=== PATIENT | female | born 1950 | race Caucasian/White ===

== ENCOUNTER 2016-08-05 15:35 | Inpatient (IN) | payer OTHER ==
[~2016-08-05] VITALS: Ht 154.9 cm; Wt 63.5 kg
--- NOTE | 2016-08-05 16:09 | NUR ---
TRIAGE: PT TO ER WITH SON C/C PAIN TO L KNEE S/P FALL TODAY & R SHOULDER PAIN CHRONIC X MONTHS S/P FALL. PT STATES SHE FELL DOWN ABOUT 3 STAIRS CARRYING HER DOG. HAS NOT TRIED ANY OTC MEDICATIONS, "I DON'T TAKE THEM. THEY USUALLY GIVE ME PERSCRIPTION PAIN MEDICATIONS."
--- NOTE | 2016-08-05 16:09 | NUR ---
Informed waiting has been performed.
[2016-08-05] MEDS ORDERED: JANUVIA100 M1 PO (17:12)
[2016-08-05] MEDS ORDERED: LOSARTAN POTAS100 M1 PO (17:12)
[2016-08-05] MEDS ORDERED: LEVOTHYROXINE50 MCG PO (17:13)
[2016-08-05] MEDS ORDERED: CARVEDILOL6.25 M1 PO (17:13)
[2016-08-05] MEDS ORDERED: GLYSET25 MG PO (17:14)
[2016-08-05] MEDS ORDERED: RISPERIDONE1 M1 PO (17:14)
[2016-08-05] MEDS ORDERED: PAROXETINE HCL30 M1 PO (17:14)
[2016-08-05] MEDS ORDERED: ASPIRIN EC81 M1 PO (17:15)
[2016-08-05] MEDS ORDERED: METFORMIN HCL500 M3 PO (17:15)
[2016-08-05] MEDS ORDERED: MIRTAZAPINE45 M1 PO (17:15)
[2016-08-05] MEDS ORDERED: LANTUS SOL100 UNIT/1 SC (17:17)
[2016-08-05] MEDS ORDERED: NOVOLOG100 UNIT/2 SC (17:17)
[2016-08-05] MEDS ORDERED: LIPITOR80 M1 PO (17:18)
[2016-08-05] MEDS ORDERED: PROAIR HFA8.5 GM INH (17:18)
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
--- NOTE | 2016-08-05 18:39 | RADIOLOGY REPORT ---
EXAMINATION: XR LEFT HIP AND LEFT KNEE CLINICAL INFORMATION: Left hip and left knee pain following fall. COMPARISON: None. TECHNIQUE: AP, lateral and bilateral oblique views of the left knee, 5 views in total. AP and crosstable lateral views of the left hip, 3 views in total. FINDINGS: Left knee: Multiple views of the left knee demonstrate a comminuted fracture involving the distal left femur, with contiguous extension into the lateral tibiofemoral compartment. There is approximately 5 mm of lateral displacement of the distal femoral fracture fragment relative to the proximal femoral fracture fragment. Additionally, there is approximately 4 mm of superior displacement of the distal femoral fracture fragment relative to the medial femoral condyle. There is significant soft tissue swelling surrounding the left knee joint and there is a moderate suprapatellar left knee joint effusion, likely automobile rental representative of lipohemarthrosis. There are mild degenerative changes involving the patellofemoral compartment. Left hip: Demineralization of the visualized bones. No visible grossly displaced left hip or left hemipelvic fractures. IMPRESSION: 1. Acute comminuted fracture involving the distal left femur. This comminuted fracture is oriented obliquely. A butterfly fragment is identified. There is contiguous extension of the fracture into the lateral tibiofemoral compartment. There is approximately 5 mm of lateral displacement of the distal femoral fracture fragment relative to the femur. There is also approximately 4 mm of superior displacement of the distal femoral fracture fragment relative to the adjacent medial femoral condyle. 2. Moderate lipohemarthrosis. 3. No visible fracture or dislocation of the left hip.
--- NOTE | 2016-08-05 18:47 | NUR ---
GRADE RECORDER DEGEORGE AT BEDSIDE TO DISCUSS DISTAL FEMUR FRACTURE.
--- NOTE | 2016-08-05 19:06 | NUR ---
PATIENT FROM [place] [facility] STRETCHER TO ROOM 9 AT THIS TIME.
--- NOTE | 2016-08-05 19:28 | NUR ---
BLOOD DRAWN AND SENT TO LAB BY THIS MST. BLUE, SST, LAV, PINK, AND COBB TOPS DRAWN. EKG DONE
[2016-08-05 19:37] LABS: ABSOLUTE BASOPHIL COUNT 0 /CUMM (0.0-0.2); ABSOLUTE EOSINOPHIL COUNT 0.1 /CUMM (0.0-0.7); ABSOLUTE GRANULOCYTE CT 10.3 /CUMM (1.4-6.5); ABSOLUTE LYMPH COUNT 1.7 /CUMM (1.2-3.4); ABSOLUTE MONOCYTE COUNT 0.7 /CUMM (0.10-0.60); BASOPHIL % 0.4 % (0.0-2.0); EOSINOPHIL % 1.2 % (0-5); HEMATOCRIT 38.7 % (37-47); MEAN CORPUSCULAR HGB 30.2 PG (27.0-31.0); MEAN CORPUSCULAR HGB CONC 32.9 G/DL (33.0-37.0); MEAN CORPUSCULAR VOLUME 91.7 FL (81.0-99.0); MEAN PLATELET VOLUME 10.3 FL (7.4-10.4); PLATELET COUNT 100 /CUMM (130-400); RBC DISTRIBUTION WIDTH 17.2 % (11.5-14.5); RED BLOOD CELL CT 4.22 /CUMM (4.20-5.40); WHITE BLOOD CELL COUNT 12.9 /CUMM (4.8-10.8)
--- NOTE | 2016-08-05 19:38 | NUR ---
PT RESTING COMFORTBALY REPORTS PAIN ONLY WITH MOVEMENT, 2/10. AWAKE/ALERT WITH EASY WOB.
[2016-08-05 19:41] LABS: PT 14.6 SEC (9.4-12.5); PTT 35 SEC (25-37)
--- NOTE | 2016-08-05 21:20 | RADIOLOGY REPORT ---
EXAMINATION: XR CHEST CLINICAL INFORMATION: Shortness of breath. COMPARISON: None. TECHNIQUE: PA and lateral views of the chest were obtained. FINDINGS: The lungs are well-expanded, without focal airspace consolidation. No pleural effusions or pneumothoraces are identified. Cardiomediastinal contours are within normal limits. Soft tissues are unremarkable. No acute osseous abnormality is identified. There are mild to moderate multilevel degenerative changes of the imaged thoracic spine. IMPRESSION: No acute pulmonary process.
--- NOTE | 2016-08-05 21:25 | NUR ---
PT IS GOING TO -
--- NOTE | 2016-08-05 21:37 | Cons- Orthopedic ---
CHRISTIANNE ROJAS 08/05/16 2130: General Information and HPI Consulting Request Date of Consult: 08/05/16 Requested By: Reason for Consult: left distal femur fracture Source of Information: patient Exam Limitations: no limitations History of Present Illness: This 66 year old white female with past medical history significant for copd, htn, dm, hld, depression, hypothyroidism, and history of syncopal falls, presents with a left distal femur fracture after a seemingly mechanical fall at home. Although she admits to having syncopal falls in the past, she doesn't believe today's fall involved provoking symptoms. She describes the event as a mechanical event involving tripping down three stairs at home. Her son heard the fall, helped her into a chair, and later assisted her transportation to the ED. She currently reports left thigh and knee discomfort, but is pretty comfortable with resting it currently. She denies any recent illnesses. No dizziness. No shortness of breath. No chest pains. Allergies/Medications Allergies: Coded Allergies: No Known Allergies (08/05/16) Current Medications: Current Medications Sig/Jesus Manuel Start time Last Medication Dose Route Stop Time Status Admin Insulin Human Regular 0 Q6 08/05 2359 AC SC Morphine Sulfate 0 .STK-MED ONE 08/05 2023 DC .ROUTE Morphine Sulfate 4 MG ONCE ONE 08/05 2000 DC 08/05 IV 08/05 Oxycodone/ 0 .STK-MED ONE 08/05 1846 DC Acetaminophen PO Oxycodone/ 1 TAB ONCE ONE 08/05 1800 DC 08/05 Acetaminophen PO 08/05 1801 1846 Past History Medical History Neurological: NONE EENT: NONE Cardiovascular: hypertension, hyperlipidemia Respiratory: COPD Gastrointestinal: NONE Hepatic: NONE Renal: NONE Musculoskeletal: NONE Psychiatric: depression Endocrine: diabetes, hypothyroidism Blood Disorders: NONE Cancer(s): NONE JOB COST ESTIMATOR/Reproductive: NONE Surgical History Pertinent Surgical History: 1 Psychosocial History Where Do You Live? Home Who Do You Live With? child (lives with her son) ETOH Use: occasional use Illicit Drug Use: marijuana Review of Systems Review of Systems: admits: left knee and thigh discomfort denies: dizziness, shortness of breath, chest pains, abdominal pain, dysuria, weakness Exam & Diagnostic Data Vital Signs and I&O Vital Signs Date Time Temp Pulse Resp B/P Pulse O2 O2 Flow FiO2 Ox Delivery Rate 08/06 2127 98.7 88 18 139/74 92 Room Air 08/06 2031 88 16 186/90 95 Room Air 08/05 1605 98.2 74 20 176/75 92 Room Air Physical Exam: General - alert & oriented x 3. comfortable. no acute distress. Skin - warm, dry, and smooth. no rashes noted. Lungs - clear bilaterally Cardiac - s1s2. reg. Abdomen - soft. nontender Extremities - warm bilaterally. calves soft and nontender b/l. did not attempt range of motion of left hip and knee due to known fracture. pain with palpation to the left knee and lateral aspect of her thigh with obvious swelling. nvi distally. Last 24 Hours of Labs: Laboratory Tests 08/05 1917 Chemistry Sodium (137 - 145 mmol/L) 140 Potassium (3.5 - 5.1 mmol/L) 4.4 Chloride (98 - 107 mmol/L) 105 Carbon Dioxide (22 - 30 mmol/L) 21 L Anion Gap (5 - 16) 14 BUN (7 - 17 mg/dL) 14 Creatinine (0.5 - 1.0 mg/dL) 1.1 H Estimated GFR (>60 ml/min) 50 L BUN/Creatinine Ratio (7 - 25 %) 12.7 Glucose (65 - 99 mg/dL) 264 H Calcium (8.4 - 10.2 mg/dL) 10.7 H Total Bilirubin (0.2 - 1.3 mg/dL) 1.4 H AST (14 - 36 U/L) 50 H ALT (9 - 52 U/L) 50 Alkaline Phosphatase (<127 U/L) 160 H Troponin I (< 0.11 ng/ml) < 0.01 Total Protein (6.3 - 8.2 g/dL) 7.4 Albumin (3.5 - 5.0 g/dL) 4.0 Globulin (1.9 - 4.2 gm/dL) 3.4 Albumin/Globulin Ratio (1.1 - 2.2 %) 1.2 Coagulation PT (9.4 - 12.5 SEC) 14.6 H INR (0.90 - 1.19) 1.40 H APTT (25 - 37 SEC) 35 Hematology CBC w Diff NO MAN DIFF REQ WBC (4.8 - 10.8 /CUMM) 12.9 H RBC (4.20 - 5.40 /CUMM) 4.22 Hgb (12.0 - 16.0 G/DL) 12.7 Hct (37 - 47 %) 38.7 MCV (81.0 - 99.0 FL) 91.7 MCH (27.0 - 31.0 PG) 30.2 RDW (11.5 - 14.5 %) 17.2 H Plt Count (130 - 400 /CUMM) 100 L MPV (7.4 - 10.4 FL) 10.3 Gran % (42.2 - 75.2 %) 80.0 H Lymphocytes % (20.5 - 51.1 %) 12.9 L Monocytes % (1.7 - 9.3 %) 5.5 Eosinophils % (0 - 5 %) 1.2 Basophils % (0.0 - 2.0 %) 0.4 Absolute Granulocytes (1.4 - 6.5 /CUMM) 10.3 H Absolute Lymphocytes (1.2 - 3.4 /CUMM) 1.7 Absolute Monocytes (0.10 - 0.60 /CUMM) 0.7 H Absolute Eosinophils (0.0 - 0.7 /CUMM) 0.1 Absolute Basophils (0.0 - 0.2 /CUMM) 0 PUBS MCHC (33.0 - 37.0 G/DL) 32.9 L Imaging Results: EXAM TYPE: RAD - XRY-HIP 2-3 VIEWS, LEFT; XRY-KNEE, LEFT EXAMINATION: XR LEFT HIP AND LEFT KNEE CLINICAL INFORMATION: Left hip and left knee pain following fall. COMPARISON: None. TECHNIQUE: AP, lateral and bilateral oblique views of the left knee, 5 views in total. AP and crosstable lateral views of the left hip, 3 views in total. FINDINGS: Left knee: Multiple views of the left knee demonstrate a comminuted fracture involving the distal left femur, with contiguous extension into the lateral tibiofemoral compartment. There is approximately 5 mm of lateral displacement of the distal femoral fracture fragment relative to the proximal femoral fracture fragment. Additionally, there is approximately 4 mm of superior displacement of the distal femoral fracture fragment relative to the medial femoral condyle. 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 There are mild degenerative changes involving the patellofemoral compartment. Left hip: Demineralization of the visualized bones. No visible grossly displaced left hip or left hemipelvic fractures. IMPRESSION: 1. Acute comminuted fracture involving the distal left femur. This comminuted fracture is oriented obliquely. A butterfly fragment is identified. There is contiguous extension of the fracture into the lateral tibiofemoral compartment. There is approximately 5 mm of lateral displacement of the distal femoral fracture fragment relative to the femur. There is also approximately 4 mm of superior displacement of the distal femoral fracture fragment relative to the adjacent medial femoral condyle. 2. Moderate lipohemarthrosis. 3. No visible fracture or dislocation of the left hip. DICTATED BY: BRIANNA PENA MD DATE/TIME DICTATED:08/05/161827 BUILDING SERVICES TECHNICIAN:RICHARD DATE/TIME TRANSCRIBED:08/05/161827 Other Results: EXAM TYPE: RAD - XRY-CHEST XRAY, PA AND LATERAL EXAMINATION: XR CHEST CLINICAL INFORMATION: Shortness of breath. COMPARISON: None. TECHNIQUE: PA and lateral views of the chest were obtained. FINDINGS: The lungs are well-expanded, without focal airspace consolidation. No pleural effusions or pneumothoraces are identified. Cardiomediastinal contours are within normal limits. Soft tissues are unremarkable. No acute osseous abnormality is identified. There are mild to moderate multilevel degenerative changes of the imaged thoracic spine. IMPRESSION: No acute pulmonary process. DICTATED BY: BRIANNA PENA MD DATE/TIME DICTATED:08/05/162115 BUILDING SERVICES TECHNICIAN:RICHARD DATE/TIME TRANSCRIBED:08/05/162115 Assessment/Plan Assessment/Plan This 66 year old white female with hx copd, htn, dm, hld, depression, hypothyroidism, and history of syncopal falls, presents with a left distal femur fracture after a seemingly mechanical fall at home being admitted to medical service for multiple co-morbidities will need surgical repair once patient is cleared by medical team pain control as needed ortega currently in place likely str placement post-op the patient understands & agrees with plan d/w Problem List: 1. Fracture, femur, distal Consult Acknowledgment - Thank you for your consult request. JODEE TERESA MD 08/06/16 1018: General Information and HPI Allergies/Medications Home Med List: Albuterol Sulfate (Proair Hfa) 90 MCG HFA.AER.AD 2 PUF INH PRN COPD (Reported ) Aspirin (Ecotrin*) 81 MG TABLET.DR 1 TAB PO DAILY HEART/BLOOD (Reported) Atorvastatin Calcium (Lipitor) 80 MG TABLET 1 TAB PO DAILY CHOLESTEROL ( Reported) Carvedilol 6.25 MG TABLET 1 TAB PO BID HEART/BP (Reported) Insulin Aspart (Novolog) (Unknown Strength) VIAL (Unknown Dose) SC TIDAC DM ( Reported) Insulin Glargine,Hum.rec.anlog (Lantus Solostar) 100 UNIT/ML (3 ML) INSULN.PEN 50 UNIT SC BID DM (Reported) Levothyroxine Sodium 50 MCG TABLET 1 TAB PO DAILY THYROID (Reported) Losartan Potassium 100 MG TABLET 1 TAB PO DAILY BP (Reported) Metformin HCl 500 MG TABLET 1 TAB PO BID DM (Reported) Miglitol (Glyset) 25 MG TABLET 1 TAB PO TID DM (Reported) Mirtazapine (Remeron) 15 MG TAB.RAPDIS 1 TAB PO QPM Mental Health (Reported) Paroxetine HCl 30 MG TABLET 1 TAB PO BID MENTAL HEALTH (Reported) Risperidone (Risperdal) 0.5 MG TABLET 1 TAB PO BID Mental Health (Reported) Risperidone 1 MG TABLET 1 TAB PO QPM MENTAL HEALTH (Reported) Sitagliptin Phosphate (Januvia) 100 MG TABLET 1 TAB PO DAILY DM (Reported) Assessment/Plan Consult Acknowledgment - Thank you for your consult request. Attending MD Review Statement Attending Statement Attending MD Statement: examined this patient, discuss w/resident/PA/LOSS PREVENTION ASSOCIATE, agreed w/resident/PA/LOSS PREVENTION ASSOCIATE, discussed w/nursing, reviewed images Attending Assessment/Plan: 66yo F presents with left knee and thigh pain s/p fall down 3 stairs while carrying her dog. No other injuries. She reports difficulty with medical management of blood sugars and blood pressure, saying she's "all over the place ". Recent problems with generalized weakness resulting in falls, but says she has not seen a doctor for this problem. She does not know her PCP's name. Only surgical history is partial hysterectomy. Currently living with her son. EXAM: No tenderness to palpation of bilateral upper extremities and right lower extremity. Pain and tenderness over left knee and left thigh. No tenderness over over hip, calf, ankle, or foot. Intact EHL/FHL bilaterally, pain with attempted left ankle DF/PF Sensation intact to light touch over bilateral feet, with exception of chronic decreased sensation in sole of feet R>L. A/P: 66yo F with left intra-articular distal femur fracture s/p mechanical fall. Pain controlled at this time. XR and CT scan obtained; recommend surgery for open reduction internal fixation of fracture. 1. NWB LLE, knee immobilizer for comfort 2. Pain control 3. NPO for possible OR today 4. Please hold chemoprophylaxis, SCDs while in bed 5. Appreciate medical team's care of patient's medical comorbities. Possible OR today vs tomorrow pending OR availability and further evaluation.
--- NOTE | 2016-08-05 21:54 | NUR ---
REPORT TO LALY ON 2NA
--- NOTE | 2016-08-05 21:54 | CT SCAN REPORT ---
EXAMINATION: CT LOWER EXTREMITY WITHOUT CONTRAST, LEFT CLINICAL INFORMATION: Left femur fracture. COMPARISON: Left knee radiographs from the same date TECHNIQUE: Multidetector volumetric imaging was obtained to the left femur without contrast. Multiplanar reformatted images in coronal and sagittal orientations were submitted. 3-dimensional volume rendered images were created by the interpreting physician on a separate workstation. DLP: 1605 mGy-cm FINDINGS: A sagittal intercondylar fracture of the distal femur extends from the medial cortex of the distal femoral diaphysis (9 cm proximal to the lateral femoral condyle articular surface) through the distal femoral articular surface. At the level of the articular surfaces, this fracture line is roughly 8 mm lateral to the midline, extending to the lateral trochlear facet and lateral aspect of the intercondylar notch. The fracture line does not extend into the weightbearing surfaces of the lateral femoral condyle nor the posterior nonweightbearing surface. Anteriorly, the fracture line is distracted by 9 mm at the superior aspect of the lateral trochlear facet with lateral displacement of the lateral condylar fragment. The posterior margin of the fracture line is not distracted, indicating that the lateral condylar fragment has a mild degree of external rotation. The lateral condylar fragment is displaced cephalad by 6 mm. At the posterior cortex of the diaphysis, there is a second, incomplete fracture line which propagates medially. This does not reach the far medial cortex (best seen on the 3-dimensional volume rendered images). This constitutes an SOFCOT type IV fracture. There is minimal degenerative arthritis of the hip joint. No proximal femoral fractures. Chondrocalcinosis is present in the pubic symphysis. Marked chondral calcinosis is present throughout the knee joint. There is subchondral cystic change at the weightbearing surface of the medial femoral condyle, likely due to overlying articular cartilage loss. There is mild joint space narrowing and medial compartment. Imaged portion of the tibial plateau and fibular head are unremarkable. There is a moderate-sized lipohemarthrosis within the knee joint. No intra-articular gas to indicate an open fracture. No significant loose bodies are identified. Marked soft tissue edema signal is present within the popliteal fossa. Additional blood products underlie the distal aspect of the vastus lateralis. IMPRESSION: 1. Sagittal intercondylar fracture of the distal femur propagating through the lateral trochlear facet and intercondylar notch with lateral and cephalad displacement of the lateral condylar fragment. 2. Moderate-sized lipohemarthrosis
--- NOTE | 2016-08-05 22:03 | NUR ---
[facility] CALLED FOR TRANSPORT.
--- NOTE | 2016-08-05 22:12 | History & Physical ---
FERNANDO OLVERA 08/05/16 2211: General Information and HPI MD Statement: I have seen and personally examined NANCY CHASE and documented this H&P. The patient is a 66 year old F who presented with a patient stated chief complaint of left thigh pain and left knee pain status post mechanical fall. Source of Information: patient Exam Limitations: no limitations History of Present Illness: This is a 66-year-old female with past medical history significant for hypertension, hyperlipidemia, COPD, diabetes mellitus, hypothyroidism, depression, history of multiple falls presented to ER with chief complaint of left thigh and left knee pain status post mechanical fall this afternoon. According to the patient, she was walking down the stairs when she tripped and fell. she ended on her left side complaining of left hip, thigh and left knee pain. She denies hitting her head and remembers the entire event. She denies loss of consciousness. No dizziness or lightheadedness before the event. No headache. Denies passing out. Patient complains of pain at left hip, left thigh, left knee. 11/06, controlled with morphine and Percocet in the ER. Aching and sharp and radiating down her leg. Associated with knee swelling. Denies any weakness, sensory changes. She denied any numbness or tingling sensation. She denies any other trauma. Also reports chronic right shoulder pain from previous fall. She has history of multiple falls in the past. Usually goes to walk-in clinic and get x-rays done. However she was never operated. She denies any chest pain, palpitations, difficulty breathing, abdominal pain, nausea, vomiting, diarrhea or constipation. Denied any leg swelling. Denied any headache, numbness or weakness, sensory changes, tingling sensation. However patient reported difficulty walking because of severe pain. Denies any fever, chills, sick contacts or travel history. She reports smoking history- 7 cigarettes per day. Denies alcohol abuse. Occasional marijuana user. Allergies/Medications Allergies: Coded Allergies: No Known Allergies (08/05/16) Compliance With Home Meds: GOOD Past History Travel History Traveled to [place] past 21 day No Medical History Neurological: NONE EENT: NONE Cardiovascular: hypertension, hyperlipidemia Respiratory: COPD Gastrointestinal: NONE Hepatic: NONE Renal: NONE Musculoskeletal: NONE Psychiatric: depression Endocrine: diabetes, hypothyroidism Blood Disorders: NONE Cancer(s): NONE BENDER MACHINE OPERATOR/Reproductive: NONE Surgical History Surgical History: none Past Family/Social History Psychosocial History Where do you live? Home Who Do You Live With? child (lives with her son) Smoking Status: Current Everyday Smoker ETOH Use: occasional use Illicit Drug Use: marijuana Review of Systems Review of Systems Constitutional: Denies: chills, diaphoresis, fever, malaise, weakness, unexplained weight loss. Cardiovascular: Denies: chest pain, edema, orthopena, palpitations, peripheral edema, syncope. Respiratory: Reports: wheezing. Denies: cough, hemoptysis, orthopnea, short of breath, sputum production. GI: Denies: abdominal pain, bloating, constipation, diarrhea, nausea, bloody stool, vomiting. Genitourinary: Denies: dysuria, frequency, pain, urgency. Musculoskeletal: Reports: joint pain. Denies: back pain. Skin: Reports: erythema. Neurological/Psychological: Denies: anxiety, ataxia, confusion, depressed, dementia, emotional problems, headache, numbness, tingling, tremors. Exam & Diagnostic Data Last 24 Hrs of Vital Signs/I&O Vital Signs Date Time Temp Pulse Resp B/P Pulse O2 O2 Flow FiO2 Ox Delivery Rate 08/06 0018 88 92/58 08/05 2300 98.0 90 18 132/70 92 Room Air 08/05 2235 Room Air 08/05 2128 98.7 88 18 139/74 92 Room Air 08/05 2032 88 16 186/90 95 Room Air 08/05 1605 98.2 74 20 176/75 92 Room Air Intake & Output 08/06 0800 08/06 0000 08/05 1600 Intake Total Output Total 180 Balance -180 Output, Urine 180 Patient 63.503 kg Weight Physical Exam General Appearance Alert, Oriented X3, Cooperative, No Acute Distress Skin No Rashes, No Breakdown HEENT Atraumatic, PERRLA, EOMI, Mucous Membr. moist/pink Neck Supple, No JVD, No thryomegaly Lymphatic Axillary nl, Cervical nl Cardiovascular Regular Rate, Normal S1, Normal S2, No Murmurs Lungs Normal Air Movement, wheezes Abdomen Normal Bowel Sounds, Soft, No Tenderness Neurological Normal Speech, Strength at 5/5 X4 Ext, Normal Tone, Sensation Intact, Cranial Nerves 3-12 NL Extremities No Clubbing, No Cyanosis, left knee swollen, tender, limited rom Vascular Normal Pulses, Pulses Symmetrical Last 24 Hrs of Labs/Garrett: Laboratory Tests 08/05/161917: Anion Gap 14, Estimated GFR 50 L, BUN/Creatinine Ratio 12.7, Glucose 264 H, Hemoglobin A1c Pending, Calcium 10.7 H, Total Bilirubin 1.4 H, AST 50 H, ALT 50, Alkaline Phosphatase 160 H, Troponin I < 0.01, Total Protein 7.4, Albumin 4.0, Globulin 3.4, Albumin/Globulin Ratio 1.2, PT 14.6 H, INR 1.40 H, APTT 35, CBC w Diff NO MAN DIFF REQ, RBC 4.22, MCV 91.7, MCH 30.2, RDW 17.2 H, MPV 10.3, Gran % 80.0 H, Lymphocytes % 12.9 L, Monocytes % 5.5, Eosinophils % 1.2, Basophils % 0.4, Absolute Granulocytes 10.3 H, Absolute Lymphocytes 1.7, Absolute Monocytes 0.7 H, Absolute Eosinophils 0.1, Absolute Basophils 0, PUBS MCHC 32.9 L Microbiology 08/05 2044 URINE ROUT: Urine Culture - RECD Diagnostic Data EKG Results Rate 84, normal sinus rhythm, QTC 454, no acute ST-T wave changes CXR Results Chest x-ray no acute pulmonary process Assessment/Plan Assessment: This is a 66-year-old female with past medical history significant for hypertension, hyperlipidemia, COPD, diabetes mellitus, hypothyroidism, depression, history of multiple falls presented to ER with chief complaint of left thigh and left knee pain status post mechanical fall this afternoon. Vitals on admission afebrile, heart rate 74, respiratory rate 20, blood pressure 176/95, saturating at 92% on room air. Pertinent lab: Leukocytosis 12.9, platelet 100, INR 1.40, PT 14.6. Creatinine 1.1 (normal baseline not available in our records),GFR50, [id number], calcium 10.7, AST 50, AST 50, alkaline phosphatase 160. Troponin negative. Left hip x-ray:Demineralization of the visualized bones. No visible grossly displaced left hip or left hemipelvic fractures. Left knee:Multiple views of the left knee demonstrate a comminuted fracture involving the distal left femur, with contiguous extension into the lateral tibiofemoral compartment. There is approximately 5 mm of lateral displacement of the distal femoral fracture fragment relative to the proximal femoral fracture fragment. Additionally, there is approximately 4 mm of superior displacement of the distal femoral fracture fragment relative to the medial femoral condyle. There is significant soft tissue swelling surrounding the left knee joint and there is a moderate suprapatellar left knee joint effusion, likely sales representative advertising of lipohemarthrosis. There are mild degenerative changes involving the patellofemoral compartment. Lower extremity CT:1. Sagittal intercondylar fracture of the distal femur propagating through the lateral trochlear facet and intercondylar notch with lateral and cephalad displacement of the lateral condylar fragment. 2. Moderate- sized lipohemarthrosis Chest x-ray:No acute pulmonary process. Problem list 1. comminuted fracture distal left femur. 2. Hypertension 3. Hyperlipidemia 4. Diabetes mellitus 5. Hypothyroidism 6. Depression 7. COPD comminuted fracture distal left femoral Patient presented with left hip, left knee pain status post mechanical fall this afternoon. Left hip x-ray ruled out fractures. However she has a comminuted fracture involving distal left femoral and 5 mm lateral displacement of distal femoral fracture fragment related to proximal femoral fracture fragment. Significant tissue swelling around left knee joint. * Orthopedics was consulted in ER. * Needs surgical repair and medical clearance before the surgery. * RCR right index-not a high risk surgery, no history of ischemic heart disease, no history of heart failure, no history of stroke, preoperative creatinine is less than 2. The only risk factor is patient is diabetic and on insulin. She is positive for 1 out of 6 predictors - 99% risk for major cardiac event.Therefore rate of cardiac , nonfatal CO and nonfatal cardiac arrest would be 1%. The rate of myocardial infarction, pulmonary edema, ventricular fibrillation, primary cardiac arrest and complete heart block could be 1.3%. * Admitted to general medical floor for further clearance and surgery * Monitor vitals closely * Patient is nothing by mouth tonight for possible surgical repair tomorrow by orthopedician. * Pain management * PT evaluation * Monitor WBC in the morning History of diabetes: Accu-Cheks, will hold all oral diabetic medications. We'll maintain the patient on insulin sliding scale. Will maintain the patient on 25 units of Lantus as she is nothing by mouth. Hypertension Hold losartan for now as creatinine is high. Hyperlipidemia Continue statins COPD TRC Nebs Hypothyroidism Continue levothyroxine 50 g Depression Continue mirtazapine Continue paroxetine Continue resperidone We'll hold aspirin for now Continue carvedilol Patient is nothing by mouth Pain management Full code DVT prophylaxis- alps Hold aspirin and losartan for now As Ranked By This Provider Problem List: 1. Fracture, femur, distal Qualifiers Encounter type: initial encounter Fracture type: closed Fracture morphology: unspecified fracture morphology Laterality: left Qualified Code: S72.402A - Unspecified fracture of lower end of left femur, initial encounter for closed fracture Core Measures/Miscellaneous Acute Coronary Syndrome ACS Diagnosis: No Cerebrovascular Accident CVA/TIA Diagnosis: No Congestive Heart Failure CHF Diagnosis: No Venous Thromboembolism VTE Risk Factors: Age > 40, Smoking, Trauma major or lower ext No Mech VTE prophylaxis d/t: No contraindications No VTE Pharm Prophylaxis d/t: No contraindications VTE Diagnosis: No VTE Type: NONE VTE Confirmed by (Test): NONE Severe Sepsis Severe Sepsis Present: No Septic Shock Septic Shock Present: No Miscellaneous Documentation Attending Case Discussed With: JENNIFER CARVALHO MD Primary Care Physician: HENRIK LOWE NP Patient sees these Specialists none Level of Patient Care: General Medicine GERONIMO GARCÍA 08/05/16 2213: General Information and HPI Allergies/Medications Home Med list Albuterol Sulfate (Proair Hfa) 90 MCG HFA.AER.AD 2 PUF INH PRN COPD (Reported ) Aspirin (Ecotrin*) 81 MG TABLET.DR 1 TAB PO DAILY HEART/BLOOD (Reported) Atorvastatin Calcium (Lipitor) 80 MG TABLET 1 TAB PO DAILY CHOLESTEROL ( Reported) Carvedilol 6.25 MG TABLET 1 TAB PO BID HEART/BP (Reported) Insulin Aspart (Novolog) (Unknown Strength) VIAL (Unknown Dose) SC TIDAC DM ( Reported) Insulin Glargine,Hum.rec.anlog (Lantus Solostar) 100 UNIT/ML (3 ML) INSULN.PEN 50 UNIT SC BID DM (Reported) Levothyroxine Sodium 50 MCG TABLET 1 TAB PO DAILY THYROID (Reported) Losartan Potassium 100 MG TABLET 1 TAB PO DAILY BP (Reported) Metformin HCl 500 MG TABLET 1 TAB PO BID DM (Reported) Miglitol (Glyset) 25 MG TABLET 1 TAB PO TID DM (Reported) Mirtazapine (Remeron) 15 MG TAB.RAPDIS 1 TAB PO QPM Mental Health (Reported) Paroxetine HCl 30 MG TABLET 1 TAB PO BID MENTAL HEALTH (Reported) Risperidone (Risperdal) 0.5 MG TABLET 1 TAB PO BID Mental Health (Reported) Risperidone 1 MG TABLET 1 TAB PO QPM MENTAL HEALTH (Reported) Sitagliptin Phosphate (Januvia) 100 MG TABLET 1 TAB PO DAILY DM (Reported) Resident Review Statement Resident Statement: examined this patient, discussed with internal sales engineer, agreed with internal sales engineer Other Findings: Chief complaint: Left knee pain, status post fall. This is a 66-year-old lady with past medical history significant for retention, hyperlipidemia, COPD, depression, diabetes, who presents to the hospital left knee pain status post fall. Per patient she was walking down the stairs when she tripped and fell. She landed on her left leg. Did not hit her head, upper extremity including shoulder. Denies dizziness, loss of consciousness. Please see above for more details. VSS. Pertinent physical exam at the time of admission: AAO 3, NAD. HEENT: H NCAT, PERRLA, EOMI, normal pharynx, moist mucous membrane. Neck: Supple, no JVD , no carotid bruit no lymphadenopathy. CV: RRR, no murmur. Lungs: Mild expiratory wheezes bilaterally. Abdomen: Normal bowel sounds, soft, NT, ND. Extremities: Left knee has tenderness to palpation and is swollen. There is no erythema or ecchymosis. Patient is unable to move the left leg secondary to pain. Range of motion is intact in left hip and left ankle. Pulses intact and symmetrical. Range of motion in all other 3 extremities is intact. Neurology: Normal speech, cranial nerves III- 12 intact, normal sensation. Pertinent lab: Glossitis to 12.9, platelet 100, INR 140, PT 14.6. Creatinine 1.1 (normal baseline available in our records),GFR50, [id number], calcium 10.7, AST 50, AST 50, alkaline phosphatase 160. Troponin negative. Left hip x-ray:Demineralization of the visualized bones. No visible grossly displaced left hip or left hemipelvic fractures. Left knee:Multiple views of the left knee demonstrate a comminuted fracture involving the distal left femur, with contiguous extension into the lateral tibiofemoral compartment. There is approximately 5 mm of lateral displacement of the distal femoral fracture fragment relative to the proximal femoral fracture fragment. Additionally, there is approximately 4 mm of superior displacement of the distal femoral fracture fragment relative to the medial femoral condyle. There is significant soft tissue swelling surrounding the left knee joint and there is a moderate suprapatellar left knee joint effusion, likely sales representative advertising of lipohemarthrosis. There are mild degenerative changes involving the patellofemoral compartment. Lower extremity CT:1. Sagittal intercondylar fracture of the distal femur propagating through the lateral trochlear facet and intercondylar notch with lateral and cephalad displacement of the lateral condylar fragment. 2. Moderate- sized lipohemarthrosis Chest x-ray:No acute pulmonary process. EKG: Sinus rhythm, rate 84, borderline right axis deviation, P-wave inversion in V1 and V2. No ST-T wave abnormalities noted. (No baseline EKG available in our records). Problem list/plan: # Sagittal intercondylar fracture of the distal femur, Lt: RCRI: No high risk surgery, no history of ischemic heart disease, heart failure, CVA. Preoperative creatinine is less than 2. Patient is diabetic on insulin; is positive for 1 out of 6 independent predictors for major cardiac complications. Therefore rate of cardiac , nonfatal CO and nonfatal cardiac arrest would be 1%. The rate of myocardial infarction, pulmonary edema, ventricular fibrillation, primary cardiac arrest and complete heart block could be 1.3%. Orthopedic was consulted in the ED. Will maintain the patient nothing by mouth in case she needs surgery tomorrow morning. Patient received 4 mg of IV morphine and 1 tablet of Percocet in the ED. #History of diabetes: Accu-Cheks, will hold all oral diabetic medications. We' ll maintain the patient on insulin sliding scale. Will maintain the patient on 25 units of Lantus as she is nothing by mouth. #History of COPD: TRC/nebs. #Will continue with SLP carvedilol, paroxetine, levothyroxine. #Will hold aspirin preop. #Will recheck LFTs tomorrow as patient has elevated AST. #DVT prophylaxis at all times. #Patient is full code. DEVEN WALTON, [facility] 08/06/16 0402: Attending MD Review Statement Attending Statement Attending MD Statement: examined this patient, discuss w/resident/PA/COMMERCIAL ACCOUNT OFFICER, agreed w/resident/PA/COMMERCIAL ACCOUNT OFFICER Attending Assessment/Plan: 66 yo F smoker, with h/o HTN, T2DM, COPD, hypothyroidism is here s/p mechanical fall and sustained distal left femur fracture. She denies lightheadedness, LOC or head strike. She had a similar fall down the stairs 1 month ago but reports she may have been dizzy as well at that point. She also reports exertional dyspnea attributing it to her worsening COPD and is aware that smoking is a risk factor. No previous cardiac history and has never seen a chief design drafter. VSS. Chest b/l clear anteriorly, Heart S1S2 regular. Peripheral pulses equal. Labs: WBC 12.9, Plt 100, INR 1.40, creat 1.1 (baseline unknown ?CKD), glucose 264, Ca 10.7, T. Bili 1.4, AST 50, trop neg. EKG: SR, Qtc 454. CXR: neg, Imaging suggestive of acute comminuted fracture involving distal left femur with associated lipohemarthrosis. 1. Mechanical fall with resultant distal left femur fracture. GM admit, NPO, pain management, Ortho consult, plan for repair in AM. Monet placement. Per RCRI , patient has diabetes requiring insulin, but denies h/o IHD, CHF, stroke and pre-op creatinine is <2.0; placing her at 1.0 % risk of perioperative cardiac event. It would be reasonable to proceed to the OR if the above risk is acceptable to the patient and surgeon. Eventual PT eval and placement. 2. T2DM. Accucheks, hold OHA, initiate Insulin NPO SS, check HbA1c. Given levemir 25 units tonight and in AM, resume 50 BID from tomorrow night post operatively. 3. Hold aspirin and losartan. Continue home meds synthroid, carvedilol, statin , TRC nebs. Smoking cessation counseling done, consider nicotine patch. Check utox, patient reports using marijuana for her anxiety. Continue paroxetine, risperidone and mirtazapine for depression. 4. Mild hypercalcemia and transaminitis. Will hydrate and recheck in AM. 5. Thrombocytopenia (no baseline available) of unclear etiology. Check peripheral smear. Monitor for now. 6. Creatinine 1.1 (?CKD vs. LAURA). Will hydrate and recheck renal functions in AM. Hold losartan for now. 7. Leukocytosis likely reactive. CXR neg. Check UA. DVT ppx Alps. Full code.
--- NOTE | 2016-08-05 22:29 | Admission Certification ---
Admission Certification Certification Statement - As attending physician, I certify that at the time of - admission, based on clinical presentation, severity of - symptoms, need for further diagnostic testing and - therapeutic interventions, and risk of adverse outcomes - without in-hospital treatment, in my clinical assessment, - this patient requires an acute hospital stay for a minimum - of two nights or longer. I have also considered psychsocial - factors such as support system, advanced age, financial - issues, cognitive issues, and failed out-patient treatments, - past re-admission history, safety of patient, and lack of - compliance as applicable. Specific rationale supporting this admission is: Mechanical fracture, left distal femur fracture requiring admission for repair, Ortho consult.
[2016-08-05 23:00] VITALS: BP 132/70
--- NOTE | 2016-08-05 23:06 | NUR ---
NURSE NOTE: PT ARRIVED TO FLOOR AROUDN 2210 FROM ED VIA TRANSPOR. PT ORIENTED TO ROOM. BED LOW, FALL PX IN PLACE. 09/06 PAIN, VSS, AAOX3, GONZALEZ. WILL CONTINUE TO MONITOR.
[2016-08-05] MEDS ORDERED: REMERON15 M3 PO (23:31)
[2016-08-05] MEDS ORDERED: RISPERDAL0.5 M1 PO (23:32)
--- NOTE | 2016-08-06 00:57 | NUR ---
PT BS 237, PER EMAR TO GIVE LEVEMIR 25 UNITS AND NOVOLIN R COVERAGE 6 UNITS FOR NPO PT. CONFIRMED WITH MAY WALTON ABOUT GIVING BOTH INSULIN MEDICATIONS. PER OKAY TO GIVE BOTH AND WILL START PT ON FLUIDS.
[2016-08-06 04:00] VITALS: BP 116/64
--- NOTE | 2016-08-06 06:41 | NUR ---
AT 0000 PT BP 92/58, MD OLVERA MADE AWARE, PER PT IS ON CONTINUOUS FLUIDS AND OKAY WITH BP. AT 0400 MD ORDERED 500 ML BOLUS FOR HYPOTENSION. SPOKE WITH MD ABOUT WHY ORDERING BOLUS NOW 4 HOURS AFTER BP WAS TAKEN, PER MAY "DR. CARVALHO WANTED PT TO HAVE BOLUS FOR HYPOTENSION". RECHECKED BP AT THAT TIME (0400) AND BP WAS 116/64. REPORTED NEW READING TO MIKE WALTON AND PER STILL GIVE BOLUS. BP NOW 132/67. WILL CONTINUE TO MONITOR.
[2016-08-06 07:18] VITALS: BP 132/67
--- NOTE | 2016-08-06 08:03 | NUR ---
Physical Therapy: Consult received and chart reviewed. Pt with dx of acute comminuted fracture of L distal femur with displacement. Pt will be going to OR for surgical intervention. Will place pt on hold from skilled PT. Please reconsult after surgery with an appropriate WB status. Thank you.
--- NOTE | 2016-08-06 08:46 | PN- Housestaff ---
Subjective Follow-up For: Fracture of the distal femur Subjective: Patient seen and examined at bedside. She does still endorse pain on the affected left femur where the fracture was found secondary to a fall. She denies acute complaints including chest pain, palpitation, shortness of breath, dizziness, chills, nausea, vomiting, abdominal pain or dysuria. No acute overnight event reported by nursing staff. Review of Systems Constitutional: Reports: see HPI. Objective Last 24 Hrs of Vital Signs/I&O Vital Signs Date Time Temp Pulse Resp B/P Pulse O2 O2 Flow FiO2 Ox Delivery Rate 08/06 1040 Room Air Room Air 08/06 1040 92 Room Air Room Air 08/06 0941 91 132/67 08/06 0718 98.5 91 20 132/67 93 Room Air 08/06 0400 116/64 08/06 0018 88 92/58 08/06 0000 Room Air 08/05 2300 98.0 90 18 132/70 92 Room Air 08/05 2235 Room Air 08/05 2128 98.7 88 18 139/74 92 Room Air 08/05 2032 88 16 186/90 95 Room Air 08/05 1605 98.2 74 20 176/75 92 Room Air Intake & Output 08/06 1600 08/06 0800 08/06 0000 Intake Total 1100 Output Total 250 180 Balance 850 -180 Intake, IV 1100 Number 0 Bowel Movements Output, Urine 250 180 Patient 63.503 kg Weight Physical Exam General Appearance: Alert, Oriented X3, Cooperative Skin: No Significant Lesion HEENT: Atraumatic, Mucous Membr. moist/pink Neck: Supple, No JVD Cardiovascular: Regular Rate, Normal S1, Normal S2 Lungs: Clear to Auscultation, Normal Air Movement Abdomen: Normal Bowel Sounds, Soft, No Tenderness Extremities: left sided pain at tenderness to palpation at the lateral aspect at the mid distal femur area. No obvious acute swelling or hematoma noted. Assessment/Plan Assessment: This is a 66-year-old very pleasant lady with past medical history significant for hypothyroidism, syncopal fall episodes, COPD, hypertension, diabetes mellitus, hyperlipidemia, depression presents for evaluation after mechanical fall and is found to have radiological finding of a left distal femur fracture. comminuted fracture distal left femoral Patient presented with left hip, left knee pain status post mechanical fall this afternoon. Left hip x-ray ruled out fractures. However she has a comminuted fracture involving distal left femoral and 5 mm lateral displacement of distal femoral fracture fragment related to proximal femoral fracture fragment. Significant tissue swelling around left knee joint. * Orthopedics was consulted and is their recommendation the patient is surgical intervention pending medical clearance.. * RCR right index-not a high risk surgery, no history of ischemic heart disease, no history of heart failure, no history of stroke, preoperative creatinine is less than 2. The only risk factor is patient is diabetic and on insulin. She is positive for 1 out of 6 predictors - 1% risk for major cardiac event.Therefore rate of cardiac , nonfatal ME and nonfatal cardiac arrest would be 1%. * Wait further orthopedics input * Monitor WBC in the morning History of diabetes: Accu-Cheks, will hold all oral diabetic medications. We'll maintain the patient on insulin sliding scale. Will maintain the patient on 25 units of Lantus as she is nothing by mouth. Hypertension Hold losartan for now as creatinine is high. Hyperlipidemia Continue statins COPD TRC Nebs Hypothyroidism Continue levothyroxine 50 g Depression Continue mirtazapine Continue paroxetine Continue resperidone We'll hold aspirin for now Continue carvedilol Patient is nothing by mouth Pain management Full code DVT prophylaxis- alps Hold aspirin and losartan for now Problem List: 1. Fracture, femur, distal Pain Ratin Pain Location: femur area Pain Goal: Remain pain free Pain Plan: per pain pathway Tomorrow's Labs & Rationales: CBC: PRE/POST OP
[2016-08-06 08:49] LABS: ABSOLUTE BASOPHIL COUNT 0.1 /CUMM (0.0-0.2); ABSOLUTE EOSINOPHIL COUNT 0.3 /CUMM (0.0-0.7); ABSOLUTE LYMPH COUNT 3.4 /CUMM (1.2-3.4); ABSOLUTE MONOCYTE COUNT 1.3 /CUMM (0.10-0.60); BASOPHIL % 0.6 % (0.0-2.0); GRANULOCYTE % 63.7 % (42.2-75.2); MEAN CORPUSCULAR HGB 30.8 PG (27.0-31.0); MEAN CORPUSCULAR HGB CONC 33.3 G/DL (33.0-37.0); MEAN CORPUSCULAR VOLUME 92.4 FL (81.0-99.0); MEAN PLATELET VOLUME 11.3 FL (7.4-10.4); PLATELET COUNT 102 /CUMM (130-400); RBC DISTRIBUTION WIDTH 17.1 % (11.5-14.5); RED BLOOD CELL CT 3.51 /CUMM (4.20-5.40); WHITE BLOOD CELL COUNT 14.2 /CUMM (4.8-10.8)
[2016-08-06 09:11] LABS: HEMATOCRIT 32.5 % (37-47)
--- NOTE | 2016-08-06 13:11 | PN- Att Addend ---
Attending Addendum Attending Brief Note Patient seen and examined, complains of pain in the left knee and left thigh. . She denies any chest pain or shortness of breath. She said pain medicine helps. Vital Signs Date Time Temp Pulse Resp B/P Pulse O2 O2 Flow FiO2 Ox Delivery Rate 08/06 1040 Room Air Room Air 08/06 1040 92 Room Air Room Air 08/06 0941 91 132/67 08/06 0718 98.5 91 20 132/67 93 Room Air 08/06 0400 116/64 08/06 0018 88 92/58 08/06 0000 Room Air 08/05 2300 98.0 90 18 132/70 92 Room Air 08/05 2235 Room Air 08/05 2128 98.7 88 18 139/74 92 Room Air 08/05 2032 88 16 186/90 95 Room Air 08/05 1605 98.2 74 20 176/75 92 Room Air on exam; aox3, nad. cv; s1,s2, rrr resp: clear abd; soft, nt, bs+ ext; no edema. Laboratory Tests 08/06 08/06 0630 0600 Chemistry Sodium (137 - 145 mmol/L) 138 Potassium (3.5 - 5.1 mmol/L) 3.8 Chloride (98 - 107 mmol/L) 108 H Carbon Dioxide (22 - 30 mmol/L) 23 Anion Gap (5 - 16) 8 BUN (7 - 17 mg/dL) 18 H Creatinine (0.5 - 1.0 mg/dL) 1.1 H Estimated GFR (>60 ml/min) 50 L BUN/Creatinine Ratio (7 - 25 %) 16.4 Total Bilirubin (0.2 - 1.3 mg/dL) 1.1 Direct Bilirubin (< 0.4 mg/dL) 0.4 AST (14 - 36 U/L) 39 H ALT (9 - 52 U/L) 45 Alkaline Phosphatase (<127 U/L) 103 Total Protein (6.3 - 8.2 g/dL) 6.0 L Albumin (3.5 - 5.0 g/dL) 3.2 L Hematology CBC w Diff NO MAN DIFF REQ WBC (4.8 - 10.8 /CUMM) 14.2 H RBC (4.20 - 5.40 /CUMM) 3.51 L Hgb (12.0 - 16.0 G/DL) 10.8 L Hct (37 - 47 %) 32.5 L MCV (81.0 - 99.0 FL) 92.4 MCH (27.0 - 31.0 PG) 30.8 RDW (11.5 - 14.5 %) 17.1 H Plt Count (130 - 400 /CUMM) 102 L MPV (7.4 - 10.4 FL) 11.3 H Gran % (42.2 - 75.2 %) 63.7 Lymphocytes % (20.5 - 51.1 %) 24.3 Monocytes % (1.7 - 9.3 %) 9.4 H Eosinophils % (0 - 5 %) 2.0 Basophils % (0.0 - 2.0 %) 0.6 Absolute Granulocytes (1.4 - 6.5 /CUMM) 9.0 H Absolute Lymphocytes (1.2 - 3.4 /CUMM) 3.4 Absolute Monocytes (0.10 - 0.60 /CUMM) 1.3 H Absolute Eosinophils (0.0 - 0.7 /CUMM) 0.3 Absolute Basophils (0.0 - 0.2 /CUMM) 0.1 PUBS MCHC (33.0 - 37.0 G/DL) 33.3 Urines Urine Color Cancelled Urine Clarity Cancelled Urine pH Cancelled Ur Specific Colbert Cancelled Urine Protein Cancelled Urine Ketones Cancelled Urine Nitrite Cancelled Urine Bilirubin Cancelled Urine Urobilinogen Cancelled Ur Leukocyte Esterase Cancelled Ur Microscopic Cancelled Urine Hemoglobin Cancelled Urine Glucose Cancelled 08/06 08/05 0552 2862 Chemistry Sodium (137 - 145 mmol/L) 140 Potassium (3.5 - 5.1 mmol/L) 4.4 Chloride (98 - 107 mmol/L) 105 Carbon Dioxide (22 - 30 mmol/L) 21 L Anion Gap (5 - 16) 14 BUN (7 - 17 mg/dL) 14 Creatinine (0.5 - 1.0 mg/dL) 1.1 H Estimated GFR (>60 ml/min) 50 L BUN/Creatinine Ratio (7 - 25 %) 12.7 Glucose (65 - 99 mg/dL) 264 H Hemoglobin A1c (4.2 - 5.8 %) Pending Calcium (8.4 - 10.2 mg/dL) 10.7 H Total Bilirubin (0.2 - 1.3 mg/dL) 1.4 H AST (14 - 36 U/L) 50 H ALT (9 - 52 U/L) 50 Alkaline Phosphatase (<127 U/L) 160 H Troponin I (< 0.11 ng/ml) < 0.01 Total Protein (6.3 - 8.2 g/dL) 7.4 Albumin (3.5 - 5.0 g/dL) 4.0 Globulin (1.9 - 4.2 gm/dL) 3.4 Albumin/Globulin Ratio (1.1 - 2.2 %) 1.2 Coagulation PT (9.4 - 12.5 SEC) 14.6 H INR (0.90 - 1.19) 1.40 H APTT (25 - 37 SEC) 35 Hematology CBC w Diff MAN DIFF ORDERED WBC (4.8 - 10.8 /CUMM) 12.9 H RBC (4.20 - 5.40 /CUMM) 4.22 Hgb (12.0 - 16.0 G/DL) 12.7 Hct (37 - 47 %) 38.7 MCV (81.0 - 99.0 FL) 91.7 MCH (27.0 - 31.0 PG) 30.2 RDW (11.5 - 14.5 %) 17.2 H Plt Count (130 - 400 /CUMM) 100 L MPV (7.4 - 10.4 FL) 10.3 Gran % (42.2 - 75.2 %) 80.0 H Lymphocytes % (20.5 - 51.1 %) 12.9 L Monocytes % (1.7 - 9.3 %) 5.5 Eosinophils % (0 - 5 %) 1.2 Basophils % (0.0 - 2.0 %) 0.4 Absolute Granulocytes (1.4 - 6.5 /CUMM) 10.3 H Absolute Lymphocytes (1.2 - 3.4 /CUMM) 1.7 Absolute Monocytes (0.10 - 0.60 /CUMM) 0.7 H Absolute Eosinophils (0.0 - 0.7 /CUMM) 0.1 Absolute Basophils (0.0 - 0.2 /CUMM) 0 Platelet Estimate (ADEQUATE) DECREASED Poikilocytosis 1+ Anisocytosis 1+ Ovalocytes 1+ PUBS MCHC (33.0 - 37.0 G/DL) 32.9 L Toxicology Urine Opiates Screen (>2000 NG/ML) > 4000.00 H Methadone Screen (>300 NG/ML) 85 Barbiturate Screen (>200 NG/ML) < 60 Ur Phencyclidine Scrn (>25 NG/ML) < 6.00 Amphetamines Screen (>1000 NG/ML) < 100 U Benzodiazepines Scrn (>200 NG/ML) < 85 Urine Cocaine Screen (>300 NG/ML) < 50 Urine Cannabis Screen (>50 NG/ML) > 80.00 H Urines Urine Color (YEL,AMB,STR) YEL Urine Clarity (CLEAR) CLEAR Urine pH (5.0 - 8.0) 6.0 Ur Specific Colbert (1.001 - 1.035) 1.025 Urine Protein (NEG,<30 MG/DL) 30 H Urine Ketones (NEG) NEG Urine Nitrite (NEG) NEG Urine Bilirubin (NEG) NEG Urine Urobilinogen (0.1 - 1.0 EU/dl) 0.2 Ur Leukocyte Esterase (NEG) NEG Ur Microscopic SEDIMENT EXAMINED Urine RBC (0 - 5 /HPF) 5-10 H Urine WBC (0 - 2 /HPF) 1-3 H Ur Epithelial Cells (NONE,FEW) OCCAS Urine Bacteria (NEG/NONE) RARE H Hyaline Casts (0/LPF) 1-3 H Granular Casts (NONE /LPF) RARE H Urine Mucus (FEW,NONE) FEW Micro UA Comment CELLULAR CASTS H Urine Hemoglobin (NEG) SMALL H Urine Glucose (N MG/DL) NEG A/P; 66 yo F smoker, with h/o HTN, T2DM, COPD, hypothyroidism is here s/p mechanical fall and sustained distal left femur fracture. Plan is to take her to OR today her orthopedic. Patient has a low RCRI risk for perioperative risk stratification. On her lab work, she does have slight worsening of leukocytosis as well as thrombocytopenia. Pain management is adequate. Continue current pain medications. Patient currently nothing by mouth. She is on IV fluids. For her diabetes she is getting Levemir as well as sliding scale insulin and blood sugars are in acceptable range. Continue all other current medications. Awaiting to go to our. DVT prophylaxis. Currently she is on ALPS. After the surgery DVT prophylaxis will be as her orthopedic. Please keep in mind that she has some cytopenia.
[2016-08-06 14:59] VITALS: BP 122/70
--- NOTE | 2016-08-06 19:38 | PN- Orthopedic ---
Subjective Subjective: Pt seen by Dr Calvert this am Awaiting surgery for most of the day. Objective Vital Signs and I&Os Vital Signs Date Time Temp Pulse Resp B/P Pulse O2 O2 Flow FiO2 Ox Delivery Rate 08/06 1830 87 Room Air 08/06 1459 98.7 74 20 122/70 93 08/06 1040 Room Air Room Air 08/06 1040 92 Room Air Room Air 08/06 0941 91 132/67 08/06 0718 98.5 91 20 132/67 93 Room Air 08/06 0400 116/64 08/06 0018 88 92/58 / 0000 Room Air 08/05 2300 98.0 90 18 132/70 92 Room Air 08/05 2235 Room Air 08/05 2128 98.7 88 18 139/74 92 Room Air 08/05 2032 88 16 186/90 95 Room Air Intake & Output 08/06 1600 08/06 0800 08/06 0000 08/05 1600 08/05 0800 08/05 0000 Intake Total 600 1100 Output Total 200 250 180 Balance 400 850 -180 Intake, IV 600 1100 Intake, Oral 0 Number 0 0 Bowel Movements Output, Urine 200 250 180 Patient 140 lb Weight Physical Exam: Pt seen and examined by Dr Calvert Assessment/Plan Assessment/Plan 66 yo female with distal femur fracture requiring OR repair Unfortunately the parts needed to be delivered from an outside hospital and by the time they arrived an emergency was occurring in the OR and it was therefore unavailable. Surgery is rescheduled for tomorrow. NPO after midnight Dr Calvert discussed with Pt and family.
[2016-08-06 23:17] VITALS: BP 142/70
[2016-08-07 06:24] VITALS: BP 138/76
[2016-08-07 08:31] LABS: ABSOLUTE BASOPHIL COUNT 0.1 /CUMM (0.0-0.2); ABSOLUTE EOSINOPHIL COUNT 0.2 /CUMM (0.0-0.7); ABSOLUTE GRANULOCYTE CT 5.7 /CUMM (1.4-6.5); ABSOLUTE LYMPH COUNT 2.4 /CUMM (1.2-3.4); ABSOLUTE MONOCYTE COUNT 0.9 /CUMM (0.10-0.60); BASOPHIL % 0.7 % (0.0-2.0); EOSINOPHIL % 2.1 % (0-5); GRANULOCYTE % 61.5 % (42.2-75.2); HEMATOCRIT 28.5 % (37-47); MEAN CORPUSCULAR HGB 30.7 PG (27.0-31.0); MEAN CORPUSCULAR HGB CONC 33.3 G/DL (33.0-37.0); MEAN CORPUSCULAR VOLUME 92.2 FL (81.0-99.0); MEAN PLATELET VOLUME 9.6 FL (7.4-10.4); PLATELET COUNT 62 /CUMM (130-400); RBC DISTRIBUTION WIDTH 16.5 % (11.5-14.5); RED BLOOD CELL CT 3.09 /CUMM (4.20-5.40); WHITE BLOOD CELL COUNT 9.3 /CUMM (4.8-10.8)
--- NOTE | 2016-08-07 08:41 | PN- Housestaff ---
DOROTA WALTON,GERARDO 08/07/16 0841: Subjective Follow-up For: Right femur fracture Subjective: Pt is seen and examined at bedside. She still endorses right-sided pain around fracture. However due to she does not complain of any increased shortness of breath, fever, chills assessment, palpitation, nausea, vomiting, abdominal pain or dysuria. She remains nothing by mouth in anticipation of surgical orthopedic intervention today. Review of Systems Constitutional: Reports: no symptoms. Objective Last 24 Hrs of Vital Signs/I&O Vital Signs Date Time Temp Pulse Resp B/P Pulse O2 O2 Flow FiO2 Ox Delivery Rate 08/07 1424 Nasal 2.0L Cannula 08/07 1409 97.3 80 20 120/70 92 Nasal 2.0L Cannula 08/07 0848 91 Nasal 2.0L Cannula 08/07 0803 91 138/76 08/07 0800 Nasal 2.0L Cannula 08/07 0624 98.9 91 20 138/76 91 Nasal 2.0L Cannula 08/07 0000 90 Nasal 2.0L Cannula 08/06 2317 98.6 93 20 142/70 90 Nasal Cannula 08/06 2210 74 136/80 08/06 1830 87 Room Air Intake & Output 08/07 1600 08/07 0800 08/07 0000 Intake Total 651 672 1715 Output Total 600 300 200 Balance -100 100 880 Intake, IV 400 400 600 Intake, Oral 100 0 480 Number 0 0 0 Bowel Movements Output, Urine 600 300 200 Physical Exam General Appearance: Alert, Oriented X3, Cooperative Skin: No Significant Lesion Cardiovascular: Regular Rate, Normal S1, No Murmurs, Gallops Lungs: Clear to Auscultation, Normal Air Movement Abdomen: Normal Bowel Sounds, Soft, No Hepatospenomegaly, No Masses Neurological: Sensation Intact Extremities: decreased range of motion on right lower extremity Assessment/Plan Assessment: This is a 66-year-old very pleasant lady with past medical history significant for hypothyroidism, syncopal fall episodes, COPD, hypertension, diabetes mellitus, hyperlipidemia, depression presents for evaluation after mechanical fall and is found to have radiological finding of a left distal femur fracture. comminuted fracture distal left femoral Patient presented with left hip, left knee pain status post mechanical fall this afternoon. Left hip x-ray ruled out fractures. However she has a comminuted fracture involving distal left femoral and 5 mm lateral displacement of distal femoral fracture fragment related to proximal femoral fracture fragment. Significant tissue swelling around left knee joint. * orthopedic consulted and has scheduled surgical intervention today. History of diabetes: Accu-Cheks, will hold all oral diabetic medications. We'll maintain the patient on insulin sliding scale. Will maintain the patient on 25 units of Lantus as she is nothing by mouth. Hypertension Hold losartan for now as creatinine is high. Hyperlipidemia Continue statins COPD TRC Nebs Hypothyroidism Continue levothyroxine 50 g Depression Continue mirtazapine Continue paroxetine Continue resperidone We'll hold aspirin for now Continue carvedilol Patient is nothing by mouth Pain management Full code DVT prophylaxis- alps Hold aspirin and losartan for now Problem List: 1. Fracture, femur, distal Pain Ratin Pain Location: right leg Pain Goal: Remain pain free Pain Plan: per pain pathway Tomorrow's Labs & Rationales: CBC-post surgery LEANN SAMANIEGO 08/07/16 1109: Attending MD Review Statement Attending Statement Attending MD Statement: examined this patient, discuss w/resident/PA/SPORTS TRAINER, agreed w/resident/PA/SPORTS TRAINER, discussed with family, reviewed EMR data (avail), discussed with nursing, discussed with case mgmt, reviewed images Attending Assessment/Plan: 66 yo F smoker, with h/o HTN, T2DM, COPD, hypothyroidism is here 1. s/p mechanical fall and sustained distal left femur fracture. Plan is to take her to OR. Patient has a low RCRI risk for perioperative risk stratification. 2. T2DM. Accucheks, hold OHA, initiate Insulin NPO SS, check HbA1c. Given levemir 25 units tonight and in AM, resume 50 BID from night post operatively. 3. resume ASA after surgery. 4. correct lytes. 5. Thrombocytopenia. monitor 6. Leukocytosis reactive. 7. Pain management is adequate. Continue current pain medications. DVT prophylaxis. Currently she is on ALPS. DVT prophyaxis as per ortho. Plan of care d/wed patient bedside.
--- NOTE | 2016-08-07 13:04 | PN- Orthopedic ---
Subjective Subjective: Patient seen this morning. Resting comfortable but says her left leg is very sore. Surgery delayed yesterday due to lack of implants and OR schedule. Plan for surgery today for ORIF left distal femur. Objective Vital Signs and I&Os Vital Signs Date Time Temp Pulse Resp B/P Pulse O2 O2 Flow FiO2 Ox Delivery Rate 08/07 0848 91 Nasal 2.0L Cannula 08/07 0803 91 138/76 08/07 0800 Nasal 2.0L Cannula 08/07 0624 98.9 91 20 138/76 91 Nasal 2.0L Cannula 08/07 0000 90 Nasal 2.0L Cannula 08/06 2317 98.6 93 20 142/70 90 Nasal Cannula 08/06 2210 74 136/80 08/06 1830 87 Room Air 08/06 1459 98.7 74 20 122/70 93 Intake & Output 08/07 1600 08/07 0800 08/07 0000 08/06 1600 08/06 0800 08/06 0000 Intake Total 400 5338 933 7983 Output Total 300 200 200 250 180 Balance 100 880 400 850 -180 Intake, IV 400 483 243 7594 Intake, Oral 0 480 0 Number 0 0 0 0 Bowel Movements Output, Urine 300 200 200 250 180 Patient 140 lb Weight Physical Exam: Patient resting in bed, no acute distress Moving bilateral toes; sensation intact to light touch of left foot. SCDs to bilateral calves Swelling and tenderness over the left thigh and knee; tender to light touch No knee immobilizer to left leg at this time Assessment/Plan Assessment/Plan 66yo F with left distal femur fracture; plan for ORIF left femur today. 1. NWB LLE 2. Please place knee immobilizer to left leg for support, comfort 3. NPO for surgery 4. Please hold chemoprophylaxis for surgery, SCDs to bilateral legs 5. Pain control/OBR OR this afternoon (add-on case) Attending MD Review Statement Attending Statement Attending MD Statement: examined this patient
[2016-08-07 14:09] VITALS: BP 120/70
[2016-08-07 16:55] VITALS: BP 102/64
--- NOTE | 2016-08-07 17:36 | NUR ---
PT TAKEN DOWN TO OR AT THIS TIME BY DISTRIBUTION
--- NOTE | 2016-08-07 20:45 | Operative Report ---
Operative/Inv Procedure Report Surgery Date: 08/07/16 Name of Procedure: Open reduction and internal fixation of left distal femur fracture. Pre-Operative Diagnosis: Left intra-articular distal femur fracture Post-Operative Diagnosis: Left intra-articular distal femur fracture Estimated Blood Loss: 200mL Surgeon/High School Assistant Principal: Nehal WALTON, Gabrielle Veronica MD, Armen Solis. Anesthesia: general endotracheal tube Implants: Styker 8-hole supracondylar plate with cortical and locking screws Drains: None Specimens: None Tourniquet: Not used Complications: None Condition: Stable Operative/Procedure Note Note: INDICATION FOR PROCEDURE: Jodi Barrett is a 66 year old female who presented to the [facility] with left knee pain. She slipped down three stairs while carrying her dog, and says her left leg twisted under her as she fell. She had immediate pain and inability to weight bear on the left leg. She was transported to the hospital where XRs and a CT scan of the left leg and knee where performed, showing a left intra- articular distal femur fracture. Given her mutliple medical co-morbidities, she was admitted to the General Medical service. She is a poorly controlled diabetic and a smoker, and we discussed how these factors affect healing. We reviewed the risks, benefits, and alternatives to surgical intervention, the patient consented to surgery with open reduction and internal fixation of the fracture. OPERATIVE REPORT: Ms. Barrett was brought to the OR on 08/07/2016. She was met in the pre- operative area, where her operative extremity was marked and consents reviewed. She was then brought into the operating room. A time-out procedure was performed, in which the patient, the operative extremity, and the procedure were verified. She was induced under general anesthesia and 2g of ancef were administered for kulwinder-operative antibiotics. The patient was moved to the OR table and positioned supine with a bump under the left hip. Care was taken to pad all bony prominences. An SCD was applied to the right lower leg for DVT prophylaxis. The left lower extremity was prepped and drapped in the usual sterile fashion. A surgical pause was performed prior to incision. Fluoroscopy was used to assist in identification of anatomic landmarks. A standard lateral incision was made over the lateral distal femur and extending anteriorly toward the tibial tubercle. The iliotibial band was split longitudinally. The dissection was continued distally where a lateral arthrotomy was performed for access to the joint. This was extended to the lateral meniscus. A large amount of expected hematoma was encounted with the arthrotomy. Proximally, the vastus lateralis was elevated anteriorly to expose the fracture. The oblique fracture extended from the diaphysis into the intracondylar notch, resulting in a complete split of the lateral condyle. The fracture was exposed and intervening hematoma and soft tissue were removed using bulb irrigation. The fracture was then reduced using traction of the leg over a radiolucent triangle and rotation. Once the fracture was aligned both visually and with palpation of the articular surface, K-wires were placed to hold the reduction. A large clamp was placed across the condyles to compress the lateral condyle to the remaining distal femur. The patient was noted to have very soft bone in the region of the fracture. Fluoroscopy was used in the AP and lateral views to verify the reduction, with specific attention paid to the articular surface. An 8-hole supracondylar plate was selected. It was fixed to the lateral condyle and metaphyseal bone using locking screws given the patient's osteoporotic bone. The length of the screws were verified using fluoroscopy. The proximal aspect of the plate was fixed to the diaphysis using cortical screws with good purchase. The most proximal screw was fixed percutaneously as to avoid a larger incision. The position of the screws were verified again using fluoro. The most distal and anterior screw was changed to a shorter length as it appeared very close to the articular surface. Palpation of the articular surface did not reveal displacement or step-off. Final xrays were obtained. The incision was copiously irrigated with normal saline. The IT band was closed over the vastus lateralis with #1 vicryl sutures. Distally, the capsule was closed with #1 vicryl. The incision was irrigated again, hemostasis was verified, and the wound closed in layers using #0 vicryl, #2-0 vicryl, and jose d for skin. Xeroform, gauze, and ABD pad covered the incision and were secured with webril. The left leg was wrapped in an elastic bandage from foot to mid-thigh. A knee immobilizer was placed on the left leg. The patient was extubated and transferred from the OR table to a hospital bed. She was taken from the OR to the recovery room in stable condition.
[2016-08-07 22:43] VITALS: BP 168/82
--- NOTE | 2016-08-07 22:48 | NUR ---
PT ARRIVED AT THIS TIME FROM PACU, VERY PALE AND LETHARGIC, ARROUSABLE. ORIENTED TO SELF AND PLACE BUT STATES "1958 SOMETHING" WHEN ASKED DATE, AND MAKING UP WORDS, CONFUSED, WHICH IS NOT BASELINE. PT STATES SHE FEELS "CRAPPY" FINGERSTICK IS 191, VSS EXCEPT 88% ON 2L, RESP AT BEDSIDE, TURNED UP TO 4L AT THIS TIME, AND THEN CPAP. 90% ON 4L. CALL PLACED TO SURGICAL PA, ORDER PLACED FOR LABS. PT DENIES PAIN. PER SURGICAL PA HOLD ALL PO MEDS AT THIS TIME PT IS TOO LETHARGIC.
--- NOTE | 2016-08-07 22:59 | NUR ---
MST DRAWING ORDERED LABS ON PT AT THIS TIME. PT IS MORE ALERT AT THIS TIME WITH CPAP ON. 92% ON CPAP. WILL REPORT OFF TO ONCOMING NURSE TO RECHECK VS IN 1 HOUR. SURGICAL PA MADE AWARE OF ABOVE. WILL CONTINUE TO MONITOR.
[2016-08-07 23:16] LABS: ABSOLUTE BASOPHIL COUNT 0 /CUMM (0.0-0.2); ABSOLUTE EOSINOPHIL COUNT 0 /CUMM (0.0-0.7); ABSOLUTE GRANULOCYTE CT 9.1 /CUMM (1.4-6.5); ABSOLUTE LYMPH COUNT 0.8 /CUMM (1.2-3.4); ABSOLUTE MONOCYTE COUNT 0.6 /CUMM (0.10-0.60); BASOPHIL % 0.4 % (0.0-2.0); EOSINOPHIL % 0.3 % (0-5); HEMATOCRIT 26.5 % (37-47); MEAN CORPUSCULAR HGB 29.8 PG (27.0-31.0); MEAN CORPUSCULAR HGB CONC 32.5 G/DL (33.0-37.0); MEAN CORPUSCULAR VOLUME 91.9 FL (81.0-99.0); MEAN PLATELET VOLUME 9.5 FL (7.4-10.4); RBC DISTRIBUTION WIDTH 16.9 % (11.5-14.5); RED BLOOD CELL CT 2.89 /CUMM (4.20-5.40); WHITE BLOOD CELL COUNT 10.6 /CUMM (4.8-10.8)
[2016-08-07 23:18] LABS: GRANULOCYTE % 86.6 % (42.2-75.2); PLATELET COUNT 75 /CUMM (130-400)
--- NOTE | 2016-08-07 23:29 | RADIOLOGY REPORT ---
EXAMINATION: INTRAOPERATIVE FLUOROSCOPIC GUIDANCE AND LEFT FEMUR CLINICAL INFORMATION: Fracture. Internal fixation. COMPARISON: 08/05/2016. TECHNIQUE: Fluoroscopic time was utilized in the OR for Dr. Veronica. Fluoroscopic images were obtained in AP, lateral, oblique projections. FINDINGS: Fluoroscopic guidance was provided during reduction of the distal left femur fracture. A plate and screw device was placed. On the final images, alignment is adequate. Hardware is intact. FLUOROSCOPY TIME: 54 seconds of fluoroscopic time was utilized for the entirety of this examination. IMPRESSION: Fluoroscopic guidance was provided during reduction of the distal left femur fracture. A plate and screw device was placed. On the final images, alignment is adequate. Hardware is intact.
--- NOTE | 2016-08-07 23:33 | PN- Orthopedic ---
Subjective Subjective: POSTOP CHECK +LLE pain, helped with pain meds. no n/v/cp/sob. no oob. +uo via ortega. sleepy. was desat'ing in PACU, now better on cpap (uses at home) Objective Vital Signs and I&Os Vital Signs Date Time Temp Pulse Resp B/P Pulse O2 O2 Flow FiO2 Ox Delivery Rate 08/07 2300 109 92 08/07 2243 97.9 100 20 168/82 89 Nasal 4.0L Cannula 08/07 1655 98.4 87 20 102/64 91 Nasal 2.0L Cannula 08/07 1600 Nasal 2.0L Cannula 08/07 1424 Nasal 2.0L Cannula 08/07 1409 97.3 80 20 120/70 92 Nasal 2.0L Cannula 08/07 0848 91 Nasal 2.0L Cannula 08/07 0803 91 138/76 08/07 0800 Nasal 2.0L Cannula 08/07 0624 98.9 91 20 138/76 91 Nasal 2.0L Cannula 08/07 0000 90 Nasal 2.0L Cannula Intake & Output 08/07 1600 08/07 0800 08/07 0000 / 1600 08/06 0800 08/06 0000 Intake Total 869 455 2357 600 1100 Output Total 600 300 200 200 250 180 Balance -100 100 880 400 850 -180 Intake, IV 400 400 374 382 0582 Intake, Oral 100 0 480 0 Number 0 0 0 0 0 Bowel Movements Output, Urine 600 300 200 200 250 180 Patient 140 lb Weight Gen: NAD, awake, alert, sleepy Card: s1s2 slightly tachy- low 100s Pulm: no audible wheeze Ext: LLE with immobilizer in place, ice pack in place, dressing c/d/i, dorsi/ plantar flexion limited in LLE. pedal pulses intact BL uro: ortega draining clr yellow urine Assessment/Plan Assessment/Plan 66yoF POD0 sp ORIF L femur, postop pain and desats, slightly tachy, otherwise stable. -TRC, o2, CPAP; oxygen sats improving - tachy likely from pain vs anemia (ebl 200)- prn pain meds, CBC checked now and HCT 26 (from 28), recheck in am, transfuse if continues to decrease and is symptomatic. Continue IVF. - lovenox 40qd to start tomorrow - advance diet as tolerated - LLE: knee immobilizer, TTWB, passive ROM L knee, PT - medical meds/mgmt per medical team - Core Measures/Miscellaneous Venous Thromboembolism VTE Risk Factors: Age > 40, Immobility, paresis, Surgery VTE Contraindications: No Contraindications VTE Diagnosis: No VTE Type: NONE VTE Confirmed by (Test): NONE Beta José Manuel Is Beta José Manuel a Home Med? Yes Antibiotics Is Patient on Antibiotics? Yes
--- NOTE | 2016-08-07 23:51 | NUR ---
SURGICAL PA IN TO SEE PT AND EVAL. LABS DRAWN AND SENT TO LAB. PT IS MORE ALERT NOW, CONTINUES TO BE CONFUSED. ATTEMPTS TO TAKE CPAP MASK OFF. REORIENTED AND EMOTIONAL SUPPORT GIVEN. REPORT GIVEN TO ONCOMING NURSE
--- NOTE | 2016-08-08 00:08 | NUR ---
CALL PLACED TO DIGITAL ACCOUNT EXECUTIVE AT THIS TIME REGARDING MEDS- WILL KEEP PT ON Q6 FINGERSTICKS AND NOVOLIN COVERAGE D/T PT IS NOT EATING AT THIS TIME. PT ABLE TO TAKE PO MEDS WITHOUT ISSUES, REMAINS CONFUSED TO TIME. BED ALARM IN PLACE. TAKING SIPS OF WATER AND ICE CHIPS WITHOUT ISSUES. W
[2016-08-08 00:41] VITALS: BP 130/60
[2016-08-08 02:34] VITALS: BP 130/80
[2016-08-08 04:30] VITALS: BP 140/62
--- NOTE | 2016-08-08 07:53 | Discharge Summary ---
Visit Information Visit Dates Admission Date: 08/05/16 Discharge Date: 08/10/16 Hospital Course Course Attending Physician: Dr. Leann Snyder Primary Care Physician: MYNOR POST,HENRIK Valdivia Consulting Request: Consulting Specialty: Orthopedics Consulting Physician: GABRIELLE TERESA MD Reason for Consult: femur fracture Hospital Course: This is a 66-year-old female with past medical history significant for hypertension, hyperlipidemia, COPD, diabetes mellitus, hypothyroidism, depression, history of multiple falls presented to ER with chief complaint of left thigh and left knee pain status post mechanical fall. VSS. Pertinent physical exam at the time of admission: AAO 3, NAD. HEENT: H NCAT, PERRLA, EOMI, normal pharynx, moist mucous membrane. Neck: Supple, no JVD , no carotid bruit no lymphadenopathy. CV: RRR, no murmur. Lungs: Mild expiratory wheezes bilaterally. Abdomen: Normal bowel sounds, soft, NT, ND. Extremities: Left knee has tenderness to palpation and is swollen. There is no erythema or ecchymosis. Patient is unable to move the left leg secondary to pain. Range of motion is intact in left hip and left ankle. Pulses intact and symmetrical. Range of motion in all other 3 extremities is intact. Neurology: Normal speech, cranial nerves III- 12 intact, normal sensation. Patient was admitted on the general medical floor and following issues were addressed Problem #1 mechanical fall with resultant distal left femur fracture Patient was kept on general medical floor, orthopedic surgery was consulted and patient had Open reduction and internal fixation of left distal femur fracture on 08/07/2016. Patient did fine postoperatively. And recommendations from orthopedic surgery are - LLE: knee immobilizer, TTWB, passive ROM L knee, PT.Recommedn pain control with Percocet tablets.She was getting IV morphine for breakthrough pain control in hospital. Recommend f/u with Dr Teresa in 2 weeks of discharge. Problem #2 type 2 diabetes mellitus Patient was kept on insulin sliding scale coverage and we'll resume her home meds on discharge Problem #3 mild hypercalcemia and transaminitis on admission Patient was provided with hydration and transaminitis/hypercalcemia were resolved Leukocytosis likely reactive and improved during the hospital course prblem 4: Acute blood loss anemia: likley from the surgery and receicved 1 PRBC transfusion post op day 2 Recommend to check Iron studies in 3 months Problem 5:Chronic thrmobocytpenia: It was wrosening after the surgery. HIT was considered but her 4 T probability was less than 5 % and hence we recommend continuing woth lovenox 40 mg daily for DVT PPX after surgery for total of weeks We stopped patient ASA 81 mg daily considering low indication for the medication. Patient is full code Heart healthy diet Pharmacological DVT prophylaxis Complications: None Allergies: Coded Allergies: No Known Allergies (08/05/16) Significant Procedures: Operative/Inv Procedure Report Surgery Date: 08/07/16 Name of Procedure: Open reduction and internal fixation of left distal femur fracture. Pre-Operative Diagnosis: Left intra-articular distal femur fracture Post-Operative Diagnosis: Left intra-articular distal femur fracture Estimated Blood Loss: 200mL Surgeon/Color Dipper: Nehal WALTON, Gabrielle Veronica MD, Armen Slois. Anesthesia: general endotracheal tube Implants: Styker 8-hole supracondylar plate with cortical and locking screws Drains: None Specimens: None Tourniquet: Not used Complications: None Condition: Stable Pertinent Lab Results: SERVICE DATE: 08/07/16- EXAM TYPE: RAD - XRY-FEMUR, LEFT 2 VIEWS EXAMINATION: INTRAOPERATIVE FLUOROSCOPIC GUIDANCE AND LEFT FEMUR CLINICAL INFORMATION: Fracture. Internal fixation. COMPARISON: 08/05/2016. TECHNIQUE: Fluoroscopic time was utilized in the OR for Dr. Veronica. Fluoroscopic images were obtained in AP, lateral, oblique projections. FINDINGS: Fluoroscopic guidance was provided during reduction of the distal left femur fracture. A plate and screw device was placed. On the final images, alignment is adequate. Hardware is intact. FLUOROSCOPY TIME: 54 seconds of fluoroscopic time was utilized for the entirety of this examination. IMPRESSION: Fluoroscopic guidance was provided during reduction of the distal left femur fracture. A plate and screw device was placed. On the final images, alignment is adequate. Hardware is intact. Disposition Summary Disposition Principal Diagnosis: distal left femur fracture Additional Diagnosis: Diabetes mellitus Discharge Disposition: SNF Discharge Instructions General Discharge Information Code Status: Full Code Patient's Diet: Consistent carbohydrate diet/diabetic diet Patient's Activity: LLE: knee immobilizer, TTWB, passive ROM L knee, PT Follow-Up Instructions/Appts: Please follow-up with primary care physician a week of discharge Please follow-up with orthopedic surgery for removal of jose d, follow-up x- rays and further management as outpatient in 2 weeks of discharge Medications at Discharge Discharge Medications: Stop taking the following medications: Aspirin (Ecotrin*) 81 MG TABLET.DR ORAL DAILY Continue taking these medications: Losartan Potassium (Losartan Potassium) 100 MG TABLET 1 Tablet ORAL DAILY Qty = 90 Sitagliptin Phosphate (Januvia) 100 MG TABLET 1 Tablet ORAL DAILY Qty = 90 Levothyroxine Sodium (Levothyroxine Sodium) 50 MCG TABLET 1 Tablet ORAL DAILY Qty = 90 Carvedilol (Carvedilol) 6.25 MG TABLET 1 Tablet ORAL TWICE DAILY Qty = 180 Miglitol (Glyset) 25 MG TABLET 1 Tablet ORAL THREE TIMES DAILY Qty = 90 Paroxetine HCl (Paroxetine HCl) 30 MG TABLET 1 Tablet ORAL TWICE DAILY Qty = 60 Risperidone (Risperidone) 1 MG TABLET 1 Tablet ORAL Every night Qty = 30 Metformin HCl (Metformin HCl) 500 MG TABLET 1 Tablet ORAL TWICE DAILY Qty = 180 Insulin Glargine,Hum.rec.anlog (Lantus Solostar) 100 UNIT/ML (3 ML) INSULN.PEN 50 Unit Inject into fatty tissue TWICE DAILY Insulin Aspart (Novolog) (Unknown Strength) VIAL Unknown Dose Inject into fatty tissue 3 TIMES DAILY BEFORE MEALS Atorvastatin Calcium (Lipitor) 80 MG TABLET 1 Tablet ORAL DAILY Qty = 180 Albuterol Sulfate (Proair Hfa) 90 MCG HFA.AER.AD 2 Puff Inhale through mouth as needed for COPD Qty = 9 Mirtazapine (Remeron) 15 MG TAB.RAPDIS 1 Tablet ORAL Every night Risperidone (Risperdal) 0.5 MG TABLET 1 Tablet ORAL TWICE DAILY Start taking the following new medications: Oxycodone HCl/Acetaminophen (Percocet 5-325 MG Tablet) 5 MG-325 MG TABLET 1 Tablet ORAL THREE TIMES DAILY as needed for pain Qty = 15 No Refills Enoxaparin Sodium (Lovenox) 40 MG/0.4 ML SYRINGE 40 Milligram Inject into fatty tissue DAILY Days = 28 No Refills Copies To: MYNOR POST,HENRIK Valdivia Attending MD Review Statement Documenting Attending: LEANN SNYDER MD
[2016-08-08 08:01] LABS: ABSOLUTE BASOPHIL COUNT 0 /CUMM (0.0-0.2); ABSOLUTE EOSINOPHIL COUNT 0 /CUMM (0.0-0.7); ABSOLUTE MONOCYTE COUNT 0.8 /CUMM (0.10-0.60); BASOPHIL % 0.3 % (0.0-2.0); EOSINOPHIL % 0 % (0-5); GRANULOCYTE % 81.8 % (42.2-75.2); HEMATOCRIT 24.2 % (37-47); MEAN CORPUSCULAR HGB 30.8 PG (27.0-31.0); MEAN CORPUSCULAR HGB CONC 33.3 G/DL (33.0-37.0); MEAN CORPUSCULAR VOLUME 92.3 FL (81.0-99.0); MEAN PLATELET VOLUME 10.1 FL (7.4-10.4); RBC DISTRIBUTION WIDTH 16.7 % (11.5-14.5); RED BLOOD CELL CT 2.62 /CUMM (4.20-5.40); WHITE BLOOD CELL COUNT 9.7 /CUMM (4.8-10.8)
--- NOTE | 2016-08-08 08:02 | PN- Orthopedic ---
See Addendum Subjective Subjective: Patient forgetful this morning. Unsure whether she uses CPAP at home, unsure of what year it is. Has some pain to her left knee with movement. Denies N/V, F/C, CP/SOB. Yet to ambulate. Voiding via ortega catheter. Objective Vital Signs and I&Os Vital Signs Date Time Temp Pulse Resp B/P Pulse O2 O2 Flow FiO2 Ox Delivery Rate 08/08 0430 99.4 88 18 140/62 92 Nasal 2.0L Cannula 08/08 0234 98.7 97 20 130/80 92 Nasal 2.0L Cannula 08/08 0131 98 95 08/08 0041 97.1 100 20 130/60 91 CPAP 4.0L 08/08 0015 98 92 08/07 2356 160/80 08/07 2300 109 92 08/07 2243 97.9 100 20 168/82 89 Nasal 4.0L Cannula 08/07 1655 98.4 87 20 102/64 91 Nasal 2.0L Cannula 08/07 1600 Nasal 2.0L Cannula 08/07 1424 Nasal 2.0L Cannula 08/07 1409 97.3 80 20 120/70 92 Nasal 2.0L Cannula 08/07 0848 91 Nasal 2.0L Cannula Intake & Output 08/08 1600 08/08 0800 08/08 0000 08/07 1600 08/07 0800 08/07 0000 Intake Total 737 656 7069 Output Total 600 300 200 Balance -100 100 880 Intake, IV 400 400 600 Intake, Oral 100 0 480 Number 0 0 0 Bowel Movements Output, Urine 600 300 200 Physical Exam: Gen: AAOx2 in NAD Cor: S1+S2+ Lungs: CTA al Abd: soft, NT, ND, +BS x4 Ext: slow movement with dorsi and plantar flexion. Sensation intact. Palpable Dp pulses al. Knee immobilizer in place. Genaro wrap intact. Thigh compartment/ calf compartment soft. Current Medications: Current Medications Sig/Jesus Manuel Start time Last Medication Dose Route Stop Time Status Admin Acetaminophen 500 MG Q6P PRN 08/07 2030 AC PO Acetaminophen 1,000 MG .STK-MED ONE 08/07 175 DC IV 08/07 1753 Acetaminophen 500 MG Q6P PRN 08/06 0400 DC PO Acetaminophen/ 1 TAB Q6P PRN 08/06 0400 DC 08/06 Hydrocodone Bitart PO 1140 Albuterol Sulfate 3 ML BID 08/07 2200 AC 08/07 INH 2110 Albuterol Sulfate 3 ML BID 08/06 1045 DC 08/07 INH 0847 Atorvastatin Calcium 80 MG 1700 08/08 1700 AC PO Atorvastatin Calcium 80 MG DAILY 08/06 1000 DC 08/07 PO 0803 Carvedilol 6.25 MG BID 08/07 2200 AC 08/07 PO 2356 Carvedilol 6.25 MG BID 08/05 2321 DC 08/07 PO 0803 Cefazolin Sodium 1,000 MG IQ8 08/08 0000 DC 08/08 IV 08/08 0801 0045 Dextrose/Sodium 1,000 ML Q13H 08/07 2030 DC 08/07 Chloride IV 2245 Dextrose/Sodium 1,000 ML Q13H 08/06 2200 DC 08/06 Chloride IV 08/07 1059 2338 Enoxaparin Sodium 40 MG DAILY 08/08 1000 AC SC Fentanyl Citrate 250 MCG .STK-MED ONE 08/07 1752 DC IM 08/07 1753 Hydromorphone HCl 2 MG .STK-MED ONE 08/07 1752 DC IM 08/07 1753 Insulin Aspart 0 TIDAC/HS 08/08 0115 AC SC Insulin Detemir 50 UNITS BID 08/07 2200 AC 08/08 SC 0005 Insulin Detemir 50 UNITS BID 08/06 2200 DC 08/07 SC 0803 Insulin Human Regular 4 UNITS .STK-MED ONE 08/08 0004 DC IV 08/08 0005 Insulin Human Regular 0 Q6 08/07 2359 DC 08/08 SC 0005 Insulin Human Regular 6 UNITS .STK-MED ONE 08/07 1156 DC IV 08/07 1157 Insulin Human Regular 0 Q6 08/06 2359 DC 08/07 SC 1203 Levothyroxine Sodium 0.05 MG DAILY AC 08/08 0700 AC 08/08 PO 0629 Levothyroxine Sodium 0.05 MG DAILY AC 08/06 0700 DC 08/07 PO 0545 Midazolam HCl 2 MG .STK-MED ONE 08/07 1753 DC IM 08/07 1754 Mirtazapine 15 MG QPM 08/07 2200 AC 08/08 PO 0330 Mirtazapine 15 MG QPM 08/06 2200 DC 08/06 PO 2207 Morphine Sulfate 2 MG Q6P PRN 04/10 2030 AC IV Morphine Sulfate 2 MG Q6P PRN 08/06 0400 DC 08/07 IV 1202 Ondansetron HCl 4 MG ONCE ONE 08/07 2329 DC 08/07 PO 08/07 2331 2356 Oxycodone/ 1 TAB Q6P PRN 08/07 2029 DC Acetaminophen PO Oxycodone/ 2 TAB Q6P PRN 08/07 2029 AC 08/08 Acetaminophen PO 0630 Oxycodone/ 1 TAB Q6P PRN 08/07 2029 AC Acetaminophen PO Oxycodone/ 1 TAB Q6P PRN 08/06 0400 DC 08/07 Acetaminophen PO 1357 Paroxetine HCl 30 MG BID 08/07 2199 AC 08/07 PO 2356 Paroxetine HCl 30 MG BID 08/05 2323 DC 08/07 PO 0803 Risperidone 1 MG QPM 08/07 2199 AC 08/08 PO 0330 Risperidone 1 MG QPM 08/06 2199 DC 08/06 PO 2210 Results Last 48 Hours of Labs: Laboratory Tests 08/08 08/07 0700 2307 Chemistry Sodium (137 - 145 mmol/L) Pending 137 Potassium (3.5 - 5.1 mmol/L) Pending 4.2 Chloride (98 - 107 mmol/L) Pending 105 Carbon Dioxide (22 - 30 mmol/L) Pending 23 Anion Gap (5 - 16) Pending 8 BUN (7 - 17 mg/dL) Pending 10 Creatinine (0.5 - 1.0 mg/dL) Pending 0.9 Estimated GFR (>60 ml/min) > 60 BUN/Creatinine Ratio (7 - 25 %) Pending 11.1 Troponin I (< 0.11 ng/ml) < 0.01 Hematology CBC w Diff NO MAN DIFF REQ NO MAN DIFF REQ WBC (4.8 - 10.8 /CUMM) 9.7 10.6 RBC (4.20 - 5.40 /CUMM) 2.62 L 2.89 L Hgb (12.0 - 16.0 G/DL) 8.1 L 8.6 L Hct (37 - 47 %) 24.2 L 26.5 L MCV (81.0 - 99.0 FL) 92.3 91.9 MCH (27.0 - 31.0 PG) 30.8 29.8 RDW (11.5 - 14.5 %) 16.7 H 16.9 H Plt Count (130 - 400 /CUMM) 64 L 75 L MPV (7.4 - 10.4 FL) 10.1 9.5 Gran % (42.2 - 75.2 %) 81.8 H 86.6 H Lymphocytes % (20.5 - 51.1 %) 9.9 L 7.2 L Monocytes % (1.7 - 9.3 %) 8.0 5.5 Eosinophils % (0 - 5 %) 0 0.3 Basophils % (0.0 - 2.0 %) 0.3 0.4 Absolute Granulocytes (1.4 - 6.5 /CUMM) 8.0 H 9.1 H Absolute Lymphocytes (1.2 - 3.4 /CUMM) 1.0 L 0.8 L Absolute Monocytes (0.10 - 0.60 /CUMM) 0.8 H 0.6 Absolute Eosinophils (0.0 - 0.7 /CUMM) 0 0 Absolute Basophils (0.0 - 0.2 /CUMM) 0 0 PUBS MCHC (33.0 - 37.0 G/DL) 33.3 32.5 L 04/10 04/10 0620 0600 Chemistry Sodium (137 - 145 mmol/L) 137 Potassium (3.5 - 5.1 mmol/L) 3.8 Chloride (98 - 107 mmol/L) 106 Carbon Dioxide (22 - 30 mmol/L) 23 Anion Gap (5 - 16) 8 BUN (7 - 17 mg/dL) 14 Creatinine (0.5 - 1.0 mg/dL) 0.9 Estimated GFR (>60 ml/min) > 60 BUN/Creatinine Ratio (7 - 25 %) 15.6 Hemoglobin A1c (4.2 - 5.8 %) 9.5 H Calcium (8.4 - 10.2 mg/dL) 9.1 Hematology CBC w Diff NO MAN DIFF REQ WBC (4.8 - 10.8 /CUMM) 9.3 RBC (4.20 - 5.40 /CUMM) 3.09 L Hgb (12.0 - 16.0 G/DL) 9.5 L Hct (37 - 47 %) 28.5 L MCV (81.0 - 99.0 FL) 92.2 MCH (27.0 - 31.0 PG) 30.7 RDW (11.5 - 14.5 %) 16.5 H Plt Count (130 - 400 /CUMM) 62 L MPV (7.4 - 10.4 FL) 9.6 Gran % (42.2 - 75.2 %) 61.5 Lymphocytes % (20.5 - 51.1 %) 25.9 Monocytes % (1.7 - 9.3 %) 9.8 H Eosinophils % (0 - 5 %) 2.1 Basophils % (0.0 - 2.0 %) 0.7 Absolute Granulocytes (1.4 - 6.5 /CUMM) 5.7 Absolute Lymphocytes (1.2 - 3.4 /CUMM) 2.4 Absolute Monocytes (0.10 - 0.60 /CUMM) 0.9 H Absolute Eosinophils (0.0 - 0.7 /CUMM) 0.2 Absolute Basophils (0.0 - 0.2 /CUMM) 0.1 PUBS MCHC (33.0 - 37.0 G/DL) 33.3 Assessment/Plan Assessment/Plan A: POD #1 s/p ORIF left femur d/t distal femur fracture; AVSS. Plan: Toe touch weight bear with PT/OT today. Advance diet. Remove Ortega catheter. Will be due to void. Stop IVF. Will speak with son, Landon, regarding mental status (patient does admit she is forgetful at times) Please minimize narcotic administration. RTC tylenol. Core Measures/Miscellaneous Venous Thromboembolism VTE Risk Factors: Age > 40, Immobility, paresis, Surgery VTE Contraindications: No Contraindications VTE Diagnosis: No VTE Type: NONE VTE Confirmed by (Test): NONE Beta José Manuel Is Beta José Manuel a Home Med? Yes Antibiotics Is Patient on Antibiotics? Yes
[2016-08-08 08:06] LABS: PLATELET COUNT 64 /CUMM (130-400)
--- NOTE | 2016-08-08 11:26 | PN- Housestaff ---
See Addendum RADHA WALTON,LIANG 08/08/16 1126: Subjective Follow-up For: Mechanical fall and knee pain status post ORIF Subjective: I saw patient at bedside this a.m. She seemed initially confused. Was holding her incentive spirometer upside down body was nighttime and was ready for dinner. Upon repeat visit patient seems to be more alert and oriented. She endorses baseline confusion which is corroborated by daughter at bedside. No acute overnight events. Patient tolerated surgery well and diet was resumed. Not had a bowel movement yet. Review of Systems Constitutional: Denies: chills, fever, weakness. EENTM: Reports: no symptoms. Cardiovascular: Denies: chest pain, palpitations. Respiratory: Denies: cough, short of breath. Gastrointestinal: Denies: abdominal pain, diarrhea, bloody stool, changes in stool, vomiting. Genitourinary: Reports: no symptoms. Musculoskeletal: Reports: joint pain, joint swelling, muscle pain, muscle stiffness. Objective Last 24 Hrs of Vital Signs/I&O Vital Signs Date Time Temp Pulse Resp B/P Pulse O2 O2 Flow FiO2 Ox Delivery Rate 08/08 1120 Nasal 2.0L Cannula 08/08 1058 93 Nasal 2.0L Cannula 08/08 0815 93 108/60 08/08 0430 99.4 88 18 140/62 92 Nasal 2.0L Cannula 08/08 0234 98.7 97 20 130/80 92 Nasal 2.0L Cannula 08/08 0131 98 95 08/08 0041 97.1 100 20 130/60 91 CPAP 4.0L 08/08 0015 98 92 08/07 2356 160/80 08/07 2300 109 92 08/07 2243 97.9 100 20 168/82 89 Nasal 4.0L Cannula 08/07 1655 98.4 87 20 102/64 91 Nasal 2.0L Cannula 08/07 1600 Nasal 2.0L Cannula 08/07 1424 Nasal 2.0L Cannula 08/07 1409 97.3 80 20 120/70 92 Nasal 2.0L Cannula Intake & Output 08/08 1600 08/08 0800 08/08 0000 Intake Total Output Total Balance Patient 63.503 kg Weight Physical Exam General Appearance: Alert, Oriented X3, Cooperative Skin: No Rashes, No Significant Lesion HEENT: Atraumatic, PERRLA, EOMI Neck: Supple Cardiovascular: Regular Rate, Normal S1, Normal S2, No Murmurs Lungs: Clear to Auscultation Abdomen: Soft, No Tenderness Neurological: Normal Gait Extremities: LEFT LOWER EXTREMITY IN CAST AND BRACE. dID NOT REMOVE BANDAGE. hE DID NOT APPEAR BLOODY. pATIENT ENDORSES PAIN IN THAT EXTREMITY. Vascular: Pulses Symmetrical Current Medications: Current Medications Sig/Jesus Manuel Start time Last Medication Dose Route Stop Time Status Admin Acetaminophen 650 MG Q6 08/08 1200 AC PO Acetaminophen 500 MG Q6P PRN 08/07 2030 DC PO Acetaminophen 1,000 MG .STK-MED ONE 08/07 1752 DC IV 08/07 1753 Acetaminophen 500 MG Q6P PRN 08/06 0400 DC PO Acetaminophen/ 1 TAB Q6P PRN 08/06 0400 DC 08/06 Hydrocodone Bitart PO 1140 Albuterol Sulfate 3 ML BID 08/07 2200 AC 08/08 INH 1041 Albuterol Sulfate 3 ML BID 08/06 1045 DC 08/07 INH 0847 Atorvastatin Calcium 80 MG 1700 08/08 1700 AC PO Atorvastatin Calcium 80 MG DAILY 08/06 1000 DC 08/07 PO 0803 Carvedilol 6.25 MG BID 08/07 2200 AC 08/08 PO 0815 Carvedilol 6.25 MG BID 08/05 2321 DC 08/07 PO 0803 Cefazolin Sodium 1,000 MG IQ8 08/08 0000 DC 08/08 IV 08/08 0801 0817 Dextrose/Sodium 1,000 ML Q13H 08/07 2030 DC 08/07 Chloride IV 2245 Enoxaparin Sodium 40 MG DAILY 08/08 1000 AC 08/08 SC 0815 Fentanyl Citrate 250 MCG .STK-MED ONE 08/07 1752 DC IM 08/07 1753 Hydromorphone HCl 2 MG .STK-MED ONE 08/07 1752 DC IM 08/07 1753 Insulin Aspart 0 TIDAC/HS 08/08 0115 AC 08/08 SC 1007 Insulin Detemir 50 UNITS BID 08/07 2200 AC 08/08 SC 1008 Insulin Detemir 50 UNITS BID 08/06 2200 DC 08/07 SC 0803 Insulin Human Regular 4 UNITS .STK-MED ONE 08/08 0004 DC IV 08/08 0005 Insulin Human Regular 0 Q6 08/07 2359 DC 08/08 SC 0005 Insulin Human Regular 6 UNITS .STK-MED ONE 08/07 1156 DC IV 08/07 1157 Insulin Human Regular 0 Q6 08/06 2359 DC 08/07 SC 1203 Levothyroxine Sodium 0.05 MG DAILY AC 08/08 0700 AC 08/08 PO 0629 Levothyroxine Sodium 0.05 MG DAILY AC 08/06 0700 DC 08/07 PO 0545 Midazolam HCl 2 MG .STK-MED ONE 08/07 1753 DC IM 08/07 1754 Mirtazapine 15 MG QPM 08/07 2199 AC 08/08 PO 0330 Mirtazapine 15 MG QPM 08/06 2200 DC 08/06 PO 2207 Morphine Sulfate 2 MG Q6P PRN 08/07 2030 AC IV Morphine Sulfate 2 MG Q6P PRN 08/06 0400 DC 08/07 IV 1202 Ondansetron HCl 4 MG ONCE ONE 08/07 2330 DC 08/07 PO 08/07 2331 2356 Oxycodone HCl 5 MG Q6P PRN 08/08 0830 AC PO Oxycodone/ 1 TAB Q6P PRN 08/07 2030 DC Acetaminophen PO Oxycodone/ 2 TAB Q6P PRN 08/07 2030 DC 08/08 Acetaminophen PO 0630 Oxycodone/ 1 TAB Q6P PRN 08/07 2030 DC Acetaminophen PO Oxycodone/ 1 TAB Q6P PRN 08/06 0400 DC 08/07 Acetaminophen PO 1357 Paroxetine HCl 30 MG BID 08/07 2199 AC 08/08 PO 0815 Paroxetine HCl 30 MG BID 08/05 2323 DC 08/07 PO 0803 Risperidone 1 MG QPM 08/07 2199 AC 08/08 PO 0330 Risperidone 1 MG QPM 08/06 220 DC 08/06 PO 2210 Last 24 Hrs of Lab/Garrett Results Last 24 Hrs of Labs/Mics: Laboratory Tests 08/08/16 0700: Anion Gap 10, Estimated GFR > 60, BUN/Creatinine Ratio 13.3, CBC w Diff NO MAN DIFF REQ, RBC 2.62 L, MCV 92.3, MCH 30.8, RDW 16.7 H, MPV 10.1, Gran % 81.8 H , Lymphocytes % 9.9 L, Monocytes % 8.0, Eosinophils % 0, Basophils % 0.3, Absolute Granulocytes 8.0 H, Absolute Lymphocytes 1.0 L, Absolute Monocytes 0.8 H, Absolute Eosinophils 0, Absolute Basophils 0, PUBS MCHC 33.3 08/07/16 2307: Anion Gap 8, Estimated GFR > 60, BUN/Creatinine Ratio 11.1, Troponin I < 0.01, CBC w Diff NO MAN DIFF REQ, RBC 2.89 L, MCV 91.9, MCH 29.8, RDW 16.9 H, MPV 9.5, Gran % 86.6 H, Lymphocytes % 7.2 L, Monocytes % 5.5, Eosinophils % 0.3, Basophils % 0.4, Absolute Granulocytes 9.1 H, Absolute Lymphocytes 0.8 L, Absolute Monocytes 0.6, Absolute Eosinophils 0, Absolute Basophils 0, PUBS MCHC 32.5 L Assessment/Plan Assessment: This is a 66-year-old female past medical history significant for hypertension, hyperlipidemia, COPD, diabetes, depression, hypothyroidism, and history of multiple falls presents to the ED with a chief complaint of left thigh and knee pain status post mechanical fall. Initial Workup showed: Comminuted fracture of left femur, no gross displaced left hip and hemipelvic fracture. Negative troponin. creatinine at 1.1. Leukocytosis of 12.9. INR 1.4. Alkaline phosphatase 160. Plan Comminuted fracture distal left femoral Patient presented with left hip, left knee pain status post mechanical fall this afternoon. She has a comminuted fracture involving distal left femoral and 5 mm lateral displacement of distal femoral fracture fragment related to proximal femoral fracture fragment. Status post ORIF on 08/07/2016. Patient was placed on CPAP after extubation due to desaturation. Note that she is on CPAP at home. Tolerating diet well. Has some component of acute blood loss anemia secondary to surgical intervention will continue to monitor. * Monitor CBC * Continue diet * Mobilize with PT * Evaluate for STR * DVT prophylaxis per surgery: Lovenox 40 mg * Discontinue IV hydration as patient is tolerating by mouth * Pain control with Tylenol and Roxicodone Leukocytosis: Likely reactive. No evidence of fever or obvious source of infection. Con't monitor Acute post-op bloodloss anemia: Pt H/H was at 8.6 s/p ORIF. Will con't monitor * transfuse for goal 11/17 * Type and cross * Monitor CBC/BEP History of diabetes: * Accu-Cheks, * will hold all oral diabetic medications. * We'll maintain the patient on insulin sliding scale. Hypertension * Hold losartan for now as creatinine is high. Hyperlipidemia * Continue statins COPD * TRC Nebs * Continue CPAP Hypothyroidism * Continue levothyroxine 50 g Depression * Continue mirtazapine * Continue paroxetine * Continue resperidone We'll hold aspirin for now Continue carvedilol Patient is nothing by mouth Pain management Full code DVT prophylaxis- alps Hold aspirin and losartan for now Problem List: 1. Fracture, femur, distal Pain Ratin Pain Location: l. leg Pain Goal: Remain pain free Pain Plan: none Tomorrow's Labs & Rationales: cbc bep Consulting Request: Consulting Specialty: Orthopedics Consulting Physician: JODEE TERESA MD Reason for Consult: femur fracture LEANN SAMANIEGO 08/08/16 1138: Attending MD Review Statement Attending Statement Attending MD Statement: examined this patient, discuss w/resident/PA/WHALE FISHERMAN, agreed w/resident/PA/WHALE FISHERMAN, discussed with family, reviewed EMR data (avail), discussed with nursing, discussed with case mgmt, reviewed images Attending Assessment/Plan: 66 yo F smoker, with h/o HTN, T2DM, COPD, hypothyroidism is here 1. s/p mechanical fall and sustained distal left femur fracture s/p ORIF . 2. T2DM. Accucheks, c/w insulin. 3. Post op acute blood loss anemia 4. Post-op delirium. 5. Thrombocytopenia. monitor, resume ASA post-surgery. 6. Leukocytosis reactive. 7. Pain management is adequate. Continue current pain medications. 8. conuslt case management for d/c planning. STR DVT prophyaxis as per ortho. Plan of care d/wed patient/family bedside.
--- NOTE | 2016-08-08 11:35 | PN- Housestaff ---
Assessment/Plan Assessment: This is a 66-year-old female past medical history significant for hypertension, hyperlipidemia, COPD, diabetes, depression, hypothyroidism, and history of multiple falls presents to the ED with a chief complaint of left thigh and knee pain status post mechanical fall. Initial Workup showed: Comminuted fracture of left femur, no gross displaced left hip and hemipelvic fracture. Negative troponin. creatinine at 1.1. Leukocytosis of 12.9. INR 1.4. Alkaline phosphatase 160. Plan comminuted fracture distal left femoral Patient presented with left hip, left knee pain status post mechanical fall this afternoon. She has a comminuted fracture involving distal left femoral and 5 mm lateral displacement of distal femoral fracture fragment related to proximal femoral fracture fragment. Status post ORIF on 08/07/2016. Patient was placed on CPAP after extubation due to desaturation. Note that she is on CPAP at home. Tolerating diet well. Has some component of acute blood loss anemia secondary to surgical intervention will continue to monitor. * Monitor CBC * Continue diet * Mobilize with PT * Evaluate for STR * DVT prophylaxis per surgery: Lovenox 40 mg * Discontinue IV hydration as patient is tolerating by mouth * Pain control with Tylenol and Roxicodone History of diabetes: * Accu-Cheks, * will hold all oral diabetic medications. * We'll maintain the patient on insulin sliding scale. Hypertension * Hold losartan for now as creatinine is high. Hyperlipidemia * Continue statins COPD * TRC Nebs * Continue CPAP Hypothyroidism * Continue levothyroxine 50 g Depression * Continue mirtazapine * Continue paroxetine * Continue resperidone We'll hold aspirin for now Continue carvedilol Patient is nothing by mouth Pain management Full code DVT prophylaxis- alps Hold aspirin and losartan for now Consulting Request: Consulting Specialty: Orthopedics Consulting Physician: JODEE TERESA MD Reason for Consult: femur fracture
[2016-08-08 14:23] VITALS: BP 118/80
--- NOTE | 2016-08-08 20:11 | NUR ---
PT IS VERY CONFUSED TODAY. PER FAMILY PT IS FORGETFUL AT BASELINE BUT NOT DISORIENTATED. PT WAS HALLUCINATING THAT HER DOG WAS HERE. MD IS AWARE. MD STATED MOST LIKLEY RELATED TO ANESTHESIA. MEDICAL RESTRAINT OF 4 RAILS ORDERED.
[2016-08-08 22:37] VITALS: BP 106/60
--- NOTE | 2016-08-08 23:08 | NUR ---
PT HAS BEEN A&O CALLING [facility]. PT HAS BED ALARM ON. NO ATTEMPTS OF OOB. CALL LIGHT WITHIN REACH. PT CURRENTLY PLEASANT/ CALM EATING A SNACK. ASKED DR. JETT WRIGHT #[id number] TO D/C RESTREAINT ORDER AT THIS TIME. DSG TO LLE CDI, + CMS , NO C/O PAIN.
[2016-08-09 06:30] VITALS: BP 146/78
[2016-08-09 06:42] VITALS: BP 124/70
--- NOTE | 2016-08-09 08:59 | PN- Housestaff ---
RADHA WALTON,LIANG 08/09/16 0844: Subjective Follow-up For: Distal femoral fracture status post ORIF Subjective: Saw patient at bedside this a.m. She was asleep but arousable. Patient denied any complaints. Given patient's fatigue could not appropriately assess mental status. Overnight she was at first agitated and had been placed in 4 side rails. However, later during the night they were d/c as patient was not agitated. Review of Systems Constitutional: Reports: no symptoms. Objective Last 24 Hrs of Vital Signs/I&O Vital Signs Date Time Temp Pulse Resp B/P Pulse O2 O2 Flow FiO2 Ox Delivery Rate 08/09 0630 98.0 78 16 146/78 92 Nasal 2.0L Cannula 08/09 0043 72 93 08/08 2237 98.6 86 20 106/60 94 08/08 2234 85 122/60 08/08 2209 94 08/08 2152 94 Nasal 2.0L Cannula 08/08 2000 96 Nasal 2.0L Cannula 08/08 1423 99.3 80 20 118/80 96 Head Box 2.0L () 08/08 1120 Nasal 2.0L Cannula 08/08 1058 93 Nasal 2.0L Cannula Intake & Output 08/09 1600 08/09 0800 08/09 0000 Intake Total 280 Output Total 300 Balance -20 Intake, Oral 280 Output, Urine 300 Physical Exam General Appearance: Cooperative, No Acute Distress Skin: No Rashes, No Breakdown, No Significant Lesion HEENT: Atraumatic, PERRLA Neck: Supple Cardiovascular: Regular Rate, Normal S1, Normal S2, 3/6 systolic murmur present Lungs: Clear to Auscultation, Normal Air Movement Abdomen: Normal Bowel Sounds, Soft, No Tenderness Extremities: left lower extremity in brace. Current Medications: Current Medications Sig/Jesus Manuel Start time Last Medication Dose Route Stop Time Status Admin Acetaminophen 650 MG Q6 08/08 1200 AC 08/09 PO 0652 Albuterol Sulfate 3 ML BID 08/07 2199 AC 08/08 INH 2150 Aspirin Buffered 81 MG DAILY 08/08 1419 AC 08/08 PO 1811 Atorvastatin Calcium 80 MG 1700 08/08 1700 AC 08/08 PO 1811 Carvedilol 6.25 MG BID 08/07 2199 AC 08/08 PO 2234 Enoxaparin Sodium 40 MG DAILY 08/08 1000 AC 08/08 MA 0815 Insulin Aspart 0 TIDAC/HS 08/08 0115 AC 08/08 SC 205 Insulin Detemir 50 UNITS BID 08/07 2199 AC 08/08 SC 224 Levothyroxine Sodium 0.05 MG DAILY AC 08/08 0700 AC 08/09 PO 0651 Mirtazapine 15 MG QPM 08/07 2199 AC 08/08 PO 2235 Morphine Sulfate 2 MG Q6P PRN 08/07 2030 AC IV Oxycodone HCl 5 MG Q6P PRN 08/08 0830 AC PO Paroxetine HCl 30 MG BID 08/07 2199 AC 08/08 PO 2234 Risperidone 1 MG QPM 08/07 2199 AC 08/08 PO 223 Senna/Docusate Sodium 1 TAB BID PRN 08/09 0100 AC 08/09 PO 0059 Last 24 Hrs of Lab/Garrett Results Last 24 Hrs of Labs/Mics: Laboratory Tests 08/09/16 0747: Sodium Pending, Potassium Pending, Chloride Pending, Carbon Dioxide Pending, Anion Gap Pending, BUN Pending, Creatinine Pending, BUN/Creatinine Ratio Pending , CBC w Diff Pending, WBC Pending, RBC Pending, Hgb Pending, Hct Pending, MCV Pending, MCH Pending, RDW Pending, Plt Count Pending, MPV Pending, PUBS MCHC Pending Assessment/Plan Assessment: This is a 66-year-old female past medical history significant for hypertension, hyperlipidemia, COPD, diabetes, depression, hypothyroidism, and history of multiple falls presents to the ED with a chief complaint of left thigh and knee pain status post mechanical fall. Patient went for ORIF on 08/07/2016. Initial Workup showed: Comminuted fracture of left femur, no gross displaced left hip and hemipelvic fracture. Negative troponin. creatinine at 1.1. Leukocytosis of 12.9. INR 1.4. Alkaline phosphatase 160. Plan Comminuted fracture distal left femoral: Patient presented with left hip, left knee pain status post mechanical fall. She has a comminuted fracture involving distal left femoral and 5 mm lateral displacement of distal femoral fracture fragment related to proximal femoral fracture fragment; S/P ORIF on 08/07/2016. Patient was placed on CPAP after extubation due to desaturation. Note that she is normally on CPAP at home. Tolerating diet well. Has some component of acute blood loss anemia secondary to surgical intervention will continue to monitor. H /H yesterday at 8.1. * Monitor CBC * Continue diet * Mobilize with PT * Evaluate for STR * DVT prophylaxis per surgery: Lovenox 40 mg * Discontinue IV hydration as patient is tolerating by mouth * Pain control with Tylenol and Roxicodone Thrombocytopenia: Pt has what seems to be chronic thrombocytopenia, today at 67. 4T score 1-2 which indicates HIIT unlikely. Possibility of ASA causing low plt. * hold ASA * Con't monitor plt count * con't lovenox for ppx Acute post-op bloodloss anemia: Pt H/H was at 8.6--> 8.1--today 7.0; she is s/p ORIF. Will con't monitor * transfuse for goal 11/17 * Type and cross * Monitor CBC/BEP * TRANSFUSE 1 UNIT TODAY. Post operative delirium: Patient has some component of waxing and waning delirium postsurgery. She was initially agitated last night and required for sided rails. She was attempting unsafe ambulation on recently operated limb and pulled out her IV. Patient was not alert or oriented to time place or date. She did however know her name. Several hours later she was back to her baseline. At this time, most likely secondary to postop delirium will continue to monitor. * Avoid delirium triggers * Avoid narcotic pain medication Leukocytosis: Likely reactive. No evidence of fever or obvious source of infection. Con't monitor History of diabetes: * Accu-Cheks, * will hold all oral diabetic medications. * We'll maintain the patient on insulin sliding scale. Hypertension * Hold losartan for now as creatinine is high. Hyperlipidemia * Continue statins COPD * TRC Nebs * Continue CPAP Hypothyroidism * Continue levothyroxine 50 g Depression * Continue mirtazapine * Continue paroxetine * Continue resperidone We'll hold aspirin for now Continue carvedilol Patient is nothing by mouth Pain management Full code DVT prophylaxis- alps Hold aspirin and losartan for now Problem List: 1. Fracture, femur, distal Pain Ratin Pain Location: none Pain Goal: Remain pain free Pain Plan: current reg Tomorrow's Labs & Rationales: cbc bep DVT/Prophylaxis: mechanical, pharmacological Consulting Request: Consulting Specialty: Orthopedics Consulting Physician: JODEE TERESA MD Reason for Consult: femur fracture LEANN SAMANIEGO 08/09/16 1109: Attending MD Review Statement Attending Statement Attending MD Statement: examined this patient, discuss w/resident/PA/ELASTIC CUTTER, agreed w/resident/PA/ELASTIC CUTTER, discussed with family, reviewed EMR data (avail), discussed with nursing, discussed with case mgmt, reviewed images Attending Assessment/Plan: 66 yo F smoker, with h/o HTN, T2DM, COPD, hypothyroidism is here Denies any active bleeding from any orifice. 1. s/p mechanical fall and sustained distal left femur fracture s/p ORIF . 2. T2DM. Accucheks, c/w insulin. 3. Post op acute blood loss anemia, hb 7.0 this am, transfuse 1 unit of PRBC. recheck cbc 4. Post-op delirium improved. 5. Thrombocytopenia. monitor, resumed ASA post-surgery. 6. Leukocytosis reactive. 7. Pain management is adequate. Continue current pain medications. 8. conuslt case management for d/c planning. STR DVT prophyaxis as per ortho. Plan of care d/wed patient/family bedside
[2016-08-09 09:13] LABS: ABSOLUTE BASOPHIL COUNT 0 /CUMM (0.0-0.2); ABSOLUTE GRANULOCYTE CT 4.3 /CUMM (1.4-6.5); ABSOLUTE MONOCYTE COUNT 0.6 /CUMM (0.10-0.60); WHITE BLOOD CELL COUNT 6.4 /CUMM (4.8-10.8)
[2016-08-09 09:40] LABS: ABSOLUTE EOSINOPHIL COUNT 0 /CUMM (0.0-0.7); ABSOLUTE LYMPH COUNT 1.5 /CUMM (1.2-3.4); BASOPHIL % 0.4 % (0.0-2.0); EOSINOPHIL % 0.8 % (0-5); GRANULOCYTE % 66.4 % (42.2-75.2); HEMATOCRIT 21.1 % (37-47); MEAN CORPUSCULAR HGB 30.7 PG (27.0-31.0); MEAN CORPUSCULAR HGB CONC 33.2 G/DL (33.0-37.0); MEAN CORPUSCULAR VOLUME 92.4 FL (81.0-99.0); MEAN PLATELET VOLUME 10.3 FL (7.4-10.4); PLATELET COUNT 64 /CUMM (130-400); RBC DISTRIBUTION WIDTH 16.7 % (11.5-14.5); RED BLOOD CELL CT 2.29 /CUMM (4.20-5.40)
[2016-08-09 10:45] VITALS: BP 112/54
[2016-08-09 14:39] VITALS: BP 118/56
--- NOTE | 2016-08-09 15:44 | PN- Orthopedic ---
Subjective Subjective: Patient seen and examined this morning. Doing well, feeling much better. Oriented to person and place, recalls that it is July and Easter is on Sunday. Does not remember if she got out of bed to the chair yesterday. Pain controlled while sitting in bed, sore when moving the left leg. H/H 11/17.1. Vital signs stable, not complaining of dizziness or shortness of breath. Objective Vital Signs and I&Os Vital Signs Date Time Temp Pulse Resp B/P Pulse O2 O2 Flow FiO2 Ox Delivery Rate 08/09 1439 98.8 80 20 118/56 94 08/09 1012 Nasal 2.0L Cannula 08/09 0908 92 Nasal 2.0L Cannula 08/09 0630 98.0 78 16 146/78 92 Nasal 2.0L Cannula 08/09 0043 72 93 08/09 0000 Nasal 2.0L Cannula 08/08 2237 98.6 86 20 106/60 94 08/08 2234 85 122/60 08/08 2209 94 08/08 215 94 Nasal 2.0L Cannula 08/09 1999 96 Nasal 2.0L Cannula Intake & Output 08/09 1600 08/09 0800 08/09 0000 08/08 1600 08/08 0800 08/08 0000 Intake Total 100 280 730 700 Output Total 375 600 300 210 600 Balance -375 -500 -20 520 100 Intake, IV 0 30 600 Intake, Oral 100 280 700 100 Number 0 0 Bowel Movements Output, Urine 375 600 300 210 600 Patient 140 lb Weight Physical Exam: LLE: Dressing clean, dry, and intact; knee immobilizer in place. Tender to palpation over knee and distal thigh. Intact EHL/FHL, minimal DF/PF due to pain. No tenderness to palpation of left calf Sensation intact to light touch of LLE. Foot warm, well-perfused. Assessment/Plan Assessment/Plan 66yo F POD#2 left distal femur ORIF. Acute blood loss anemia with stable vitals signs, patient is asymptomatic. Plan for transfusion 1u PRBCs per medical team. Plan: 1. Toe-touch weight bearing left leg, knee immobilizer. May take immobilizer off while in bed for icing, comfort 2. Pain control + bowel regimen 3. Continue to monitor anemia, vital signs 4. Recommend lovenox for DVT prophylaxis and SCDs. Monitor platelets; can change to coumadin if needed. 5. Dressing change today or tomorrow, to be done by surgical PA. Plan for follow up as outpatient in 2 wks.
[2016-08-09 21:39] LABS: ABSOLUTE BASOPHIL COUNT 0 /CUMM (0.0-0.2); ABSOLUTE EOSINOPHIL COUNT 0.1 /CUMM (0.0-0.7); ABSOLUTE GRANULOCYTE CT 4.7 /CUMM (1.4-6.5); ABSOLUTE MONOCYTE COUNT 0.6 /CUMM (0.10-0.60); BASOPHIL % 0.3 % (0.0-2.0); EOSINOPHIL % 1.9 % (0-5); GRANULOCYTE % 63.4 % (42.2-75.2); HEMATOCRIT 24.6 % (37-47); MEAN CORPUSCULAR HGB 29.8 PG (27.0-31.0); MEAN CORPUSCULAR HGB CONC 33.9 G/DL (33.0-37.0); MEAN CORPUSCULAR VOLUME 87.9 FL (81.0-99.0); MEAN PLATELET VOLUME 9.7 FL (7.4-10.4); PLATELET COUNT 69 /CUMM (130-400); RED BLOOD CELL CT 2.79 /CUMM (4.20-5.40); WHITE BLOOD CELL COUNT 7.4 /CUMM (4.8-10.8)
[2016-08-09 22:00] VITALS: BP 110/58
[2016-08-10 06:47] VITALS: BP 120/70
--- NOTE | 2016-08-10 07:40 | PN- Housestaff ---
RADHA WALTON,LIANG 08/10/16 0734: Subjective Follow-up For: Distal femur comminuted fracture status post ORIF Subjective: Saw patient at bedside this a.m. She said she was feeling well. Only complaint was that she had not had a bowel movement since admission. However, she states that she is normally irregular at home as well. Patient had transfusion last night, posttransfusion CBC at 8 PM was 8.3. Review of Systems Constitutional: Reports: no symptoms. Denies: fever, malaise. EENTM: Reports: no symptoms. Cardiovascular: Denies: chest pain, palpitations. Respiratory: Denies: cough, short of breath. Gastrointestinal: Reports: constipation. Denies: abdominal pain, diarrhea, nausea, vomiting. Genitourinary: Reports: no symptoms. Musculoskeletal: Reports: back pain, joint pain, muscle pain, muscle stiffness. Objective Last 24 Hrs of Vital Signs/I&O Vital Signs Date Time Temp Pulse Resp B/P Pulse O2 O2 Flow FiO2 Ox Delivery Rate 08/10 0647 98.6 68 20 120/70 94 Nasal 2.0L Cannula 08/09 2200 98.7 78 18 110/58 94 Nasal 2.0L Cannula 08/09 2135 98.7 78 18 110/58 08/09 1840 95 Nasal Cannula 08/09 1600 94 Nasal 2.0L Cannula 08/09 1439 98.8 80 20 118/56 94 08/09 1045 98.6 84 18 112/54 92 Nasal 2.0L Cannula 08/09 1012 Nasal 2.0L Cannula 08/09 0908 92 Nasal 2.0L Cannula 08/09 0800 Nasal 2.0L Cannula Intake & Output 08/10 0800 08/10 0000 08/09 1600 Intake Total 830 480 Output Total 300 400 375 Balance -300 430 105 Intake, Blood 350 Product Intake, Oral 480 480 Output, Urine 300 400 375 Physical Exam General Appearance: Alert, Oriented X3, Cooperative, No Acute Distress Skin: No Rashes, No Breakdown, No Significant Lesion HEENT: Atraumatic, PERRLA, EOMI Neck: Supple Cardiovascular: Regular Rate, Normal S1, Normal S2, 3/6 murmur at right upper sternal border Lungs: Normal Air Movement Abdomen: Soft, No Tenderness Extremities: left lower extremity is out of cast. It is wrapped Genaro bandage from ankle to groin. Did not remove the bandage. But looks nonbloody Current Medications: Current Medications Sig/Jesus Manuel Start time Last Medication Dose Route Stop Time Status Admin Acetaminophen 650 MG .STK-MED ONE 08/09 1708 DC PO 08/09 1709 Acetaminophen 650 MG Q6 08/08 1200 AC 08/10 PO 0650 Albuterol Sulfate 3 ML BID 08/07 2200 AC 08/09 INH 1840 Aspirin Buffered 81 MG DAILY 08/08 1419 DC 08/08 PO 1811 Atorvastatin Calcium 80 MG 1700 08/08 1700 AC 08/09 PO 1704 Carvedilol 6.25 MG BID 08/07 2200 AC 08/09 PO 2135 Dextrose/Sodium 1,000 ML Q13H 08/09 1330 CAN Chloride IV Enoxaparin Sodium 40 MG DAILY 08/08 1000 AC 08/09 SC 1049 Insulin Aspart 0 TIDAC/HS 08/08 0115 AC 08/09 SC 1706 Insulin Detemir 50 UNITS BID 08/07 2200 AC 08/09 SC 2135 Levothyroxine Sodium 0.05 MG DAILY AC 08/08 0700 AC 08/10 PO 0649 Mirtazapine 15 MG QPM 08/07 2200 AC 08/09 PO 2134 Morphine Sulfate 2 MG Q6P PRN 08/07 2030 AC IV Oxycodone HCl 5 MG Q6P PRN 08/08 0830 AC 08/10 PO 0650 Paroxetine HCl 30 MG BID 08/07 2200 AC 08/09 PO 2134 Risperidone 1 MG QPM 08/07 2200 AC 08/09 PO 2134 Senna/Docusate Sodium 1 TAB BID PRN 08/09 0100 AC 08/09 PO 2134 Last 24 Hrs of Lab/Garrett Results Last 24 Hrs of Labs/Mics: Laboratory Tests 08/09/162104: CBC w Diff NO MAN DIFF REQ, RBC 2.79 L, MCV 87.9, MCH 29.8, RDW 19.0 H, MPV 9.7, Gran % 63.4, Lymphocytes % 26.6, Monocytes % 7.8, Eosinophils % 1.9, Basophils % 0.3, Absolute Granulocytes 4.7, Absolute Lymphocytes 2.0, Absolute Monocytes 0.6, Absolute Eosinophils 0.1, Absolute Basophils 0, PUBS MCHC 33.9 08/09/16 0747: Anion Gap 7, Estimated GFR > 60, BUN/Creatinine Ratio 18.9, CBC w Diff NO MAN DIFF REQ, RBC 2.29 L, MCV 92.4, MCH 30.7, RDW 16.7 H, MPV 10.3, Gran % 66.4, Lymphocytes % 23.2, Monocytes % 9.2, Eosinophils % 0.8, Basophils % 0.4, Absolute Granulocytes 4.3, Absolute Lymphocytes 1.5, Absolute Monocytes 0.6, Absolute Eosinophils 0, Absolute Basophils 0, PUBS MCHC 33.2 Assessment/Plan Assessment: This is a 66-year-old female past medical history significant for hypertension, hyperlipidemia, COPD, diabetes, depression, hypothyroidism, and history of multiple falls presents to the ED with a chief complaint of left thigh and knee pain status post mechanical fall. Patient went for ORIF on 08/07/2016. Initial Workup showed: Comminuted fracture of left femur, no gross displaced left hip and hemipelvic fracture. Negative troponin. creatinine at 1.1. Leukocytosis of 12.9. INR 1.4. Alkaline phosphatase 160. Plan Comminuted fracture distal left femoral: Patient presented with left hip, left knee pain status post mechanical fall. She has a comminuted fracture involving l. femur s/p ORIF on 08/07/2016. Patient was placed on CPAP after extubation due to desaturation. Note that she is normally on CPAP at home. Tolerating diet well. Has some component of acute blood loss anemia secondary to surgical intervention will continue to monitor. H/H january at 7.0 on 08/09/2016; s/p 1u PRBC and post transfusion level at 8.3. * Monitor CBC * Continue diet * Mobilize with PT * Evaluate for STR * DVT prophylaxis per surgery: Lovenox 40 mg * Discontinue IV hydration as patient is tolerating by mouth * Pain control with Tylenol and Roxicodone Thrombocytopenia: Pt has what seems to be chronic thrombocytopenia. 4T score 1-2 which indicates HIIT unlikely. Possibility of ASA causing low plt...? Will hold ASA. * hold ASA * Con't monitor plt count * con't lovenox for ppx Acute post-op bloodloss anemia: Pt H/H was at 8.6--> 8.1-->7.0 on 08/10/2016, got 1 unit and came to 8.3. Pending AM labs. Post operative delirium: Patient has some component of waxing and waning delirium postsurgery. Pt at baseline today. * Avoid delirium triggers * Avoid narcotic pain medication Leukocytosis: Likely reactive. No evidence of fever or obvious source of infection. Con't monitor History of diabetes: * Accu-Cheks, * will hold all oral diabetic medications. * We'll maintain the patient on insulin sliding scale. Hypertension * Hold losartan for now as creatinine is high. Hyperlipidemia * Continue statins COPD * TRC Nebs * Continue CPAP Hypothyroidism * Continue levothyroxine 50 g Depression * Continue mirtazapine * Continue paroxetine * Continue resperidone We'll hold aspirin for now Continue carvedilol Patient is nothing by mouth Pain management Full code DVT prophylaxis- alps Problem List: 1. Fracture, femur, distal Pain Ratin Pain Location: none Pain Goal: Remain pain free Pain Plan: current reg Tomorrow's Labs & Rationales: cbc bep DVT/Prophylaxis: mechanical, pharmacological Consulting Request: Consulting Specialty: Orthopedics Consulting Physician: JODEE TERESA MD Reason for Consult: femur fracture LEANN SAMANIEGO 08/10/16 1103: Attending MD Review Statement Attending Statement Attending MD Statement: examined this patient, discuss w/resident/PA/MOBILE GAME ENGINEER, agreed w/resident/PA/MOBILE GAME ENGINEER, discussed with family, reviewed EMR data (avail), discussed with nursing, discussed with case mgmt, reviewed images Attending Assessment/Plan: 66 yo F smoker, with h/o HTN, T2DM, COPD, hypothyroidism is here Denies any active bleeding from any orifice. 1. s/p mechanical fall and sustained distal left femur fracture s/p ORIF . 2. T2DM. Accucheks, c/w insulin. 3. Post op acute blood loss anemia, hb improved this am s/p 1 unit of PRBC. 4. Post-op delirium improved. 5. Transient Thrombocytopenia. monitor, improving held ASA for now. (concern for bleed) 6. Leukocytosis reactive. 7. Pain management is adequate. Continue current pain medications. 8. conuslt case management for d/c planning. STR anticipate d/c soon.
[2016-08-10 08:18] LABS: ABSOLUTE BASOPHIL COUNT 0.1 /CUMM (0.0-0.2); ABSOLUTE EOSINOPHIL COUNT 0.2 /CUMM (0.0-0.7); ABSOLUTE GRANULOCYTE CT 4.5 /CUMM (1.4-6.5); ABSOLUTE LYMPH COUNT 2.1 /CUMM (1.2-3.4); ABSOLUTE MONOCYTE COUNT 0.4 /CUMM (0.10-0.60); BASOPHIL % 1.6 % (0.0-2.0); EOSINOPHIL % 2.6 % (0-5); GRANULOCYTE % 61.2 % (42.2-75.2); HEMATOCRIT 25.7 % (37-47); MEAN CORPUSCULAR HGB 29.9 PG (27.0-31.0); MEAN CORPUSCULAR HGB CONC 34.2 G/DL (33.0-37.0); MEAN CORPUSCULAR VOLUME 87.5 FL (81.0-99.0); MEAN PLATELET VOLUME 10.4 FL (7.4-10.4); PLATELET COUNT 78 /CUMM (130-400); RBC DISTRIBUTION WIDTH 19.6 % (11.5-14.5); RED BLOOD CELL CT 2.94 /CUMM (4.20-5.40); WHITE BLOOD CELL COUNT 7.3 /CUMM (4.8-10.8)
--- NOTE | 2016-08-10 08:25 | PN- Orthopedic ---
Subjective Subjective: PT. STATED SHE DID EXCERSIS IN BED YESTERDAY WITH PT. SHE DID NOT REMEMBER WHEN HER SURGERY WAS AND IF SHE WAS OOB YESTERDAY REPORTS COMFORTABLE OVER NIGHT Objective Vital Signs and I&Os Vital Signs Date Time Temp Pulse Resp B/P Pulse O2 O2 Flow FiO2 Ox Delivery Rate 08/10 0647 98.6 68 20 120/70 94 Nasal 2.0L Cannula 08/09 2200 98.7 78 18 110/58 94 Nasal 2.0L Cannula 08/09 2135 98.7 78 18 110/58 08/09 1840 95 Nasal Cannula 08/09 1600 94 Nasal 2.0L Cannula 08/09 1439 98.8 80 20 118/56 94 08/09 1045 98.6 84 18 112/54 92 Nasal 2.0L Cannula 08/09 1012 Nasal 2.0L Cannula 08/09 0908 92 Nasal 2.0L Cannula Intake & Output 08/10 1600 08/10 0800 08/10 0000 08/09 1600 08/09 0800 08/09 0000 Intake Total 830 480 100 280 Output Total 300 400 375 600 300 Balance -300 430 105 -500 -20 Intake, Blood 350 Product Intake, IV 0 Intake, Oral 480 480 100 280 Number 0 Bowel Movements Output, Urine 300 400 375 600 300 ALERT, NO DISTRESS HEART REG LUNG CLEAR ABDOMEN BENIGN LLE WARM TO TOUCH,LIMITED STRENGTH, ABLE TO LIFT OFF BED SLIGHTLY.DRESSING OVER IS DRY.NO CALF PAIN.GOOD DISTAL SENSATION TO TOUCH. Assessment/Plan Assessment/Plan S/P ORIF FOR DISTAL FEMUR FX POD#3 POST OP SLOW TO PROGRESS WORKING WITH PT TO INCREASE STRENGTH, TTWB TOLERATED NO SIGNS OF INFECTION POST OP ANEMIA REQUIRING TRANSFUSION OF PRBC'S, PT. APPEARS ASYMPTOMATIC.NO HEMODYNAMIC INSTABILITY.HG/HCT LAST NIGHT IMPROVED. CBC PENDING FOR THIS MORNING. ON CHEMICAL DVT PROPHYLAXIS WITH LOVENOX CONT. PT D/C PLANS PER MEDICAL TEAM.STABLE FROM SURGICAL STANDPOINT
[2016-08-10] MEDS ORDERED: PERCOCET 5-3251 EACH PO (11:12)
--- NOTE | 2016-08-10 11:16 | Patient Discharge Instructions ---
Discharge Instructions General Discharge Information You were seen/treated for: 1. Femur fracture after fall 2. Blood transfusion for post-op anemia You had these procedures: R. femur surgery (Open reduction Internal Fixation) Watch for these problems: 1. Fever 2. Signs of infection of your surgical site 3. Shortness of breath 3. Chest pain Other wound care: Follow up with surgical recommendations for your leg Special Instructions: 1. Follow up with your surgeon regarding post-op care 2. Stop taking Aspirin until you follow up with your pcp 3. follow up with your PCP in the next week 4. Continue incentive spirometry Diet Continue normal diet: Yes Activity Activity Self Limited: Yes Acute Coronary Syndrome Inclusion Criteria At DC or during hospital stay patient has or had the following: ACS DIAGNOSIS No Discharge Core Measures Meds if any: Prescribed or Continued at Discharge Meds if any: NOT Prescribed or Continued at Discharge Congestive Heart Failure Inclusion Criteria At DC or during hospital stay patient has or had the following: CHF DIAGNOSIS No Discharge Core Measures Meds if any: Prescribed or Continued at Discharge Meds if any: NOT Prescribed or Continued at Discharge Cerebrovascular accident Inclusion Criteria At DC or during hospital stay patient has or had the following: CVA/TIA Diagnosis No Discharge Core Measures Meds if any: Prescribed or Continued at Discharge Meds if any: NOT Prescribed or Continued at Discharge Venous thromboembolism Inclusion Criteria VTE Diagnosis No VTE Type NONE VTE Confirmed by (Test) NONE Discharge Core Measures - Per Current guidelines, there needs to be overlap - treatment for the first 5 days of Warfarin therapy. - If discharged on Warfarin prior to 5 days of - overlap therapy, the patient will need to be - assessed for post discharge needs including - *Post discharge parental anticoagulation - *Warfarin and/or parental anticoagulation education - *Follow up date to check INR post discharge At least 5 days overlap therapy as Inpatient No Meds if any: Prescribed or Continued at Discharge Note: Overlap Therapy is Warfarin and Anticoagulant Meds if any: NOT Prescribed or Continued at Discharge
[2016-08-10] MEDS ORDERED: LOVENOX40 MG/0.1 SC (11:20)
[2016-08-10 14:14] VITALS: BP 130/60
[2016-08-10 14:16] VITALS: BP 128/60
== END 2016-08-10 20:30 | DRG 308 ==
LOC: ENRESERVTM → ENRESERVDT → ERH 15:35 → ERHI 18:54 → 2NA 18:54 → ENPENDDIS 18:54 → 2NA 22:13
PROVIDERS: Internal Medicine; Nurse Practitioner Family; Physician Assistant Surgical; Student in an Organized Health Care Education/Training Program; ADMIT Student in an Organized Health Care Education/Training Program
PROC: 0QSC04Z Reposition Left Lower Femur with Internal Fixation Device, Open Approach (ICD-10-PCS; principal; 2016-08-07)
PROC: 30233N1 Transfusion of Nonautologous Red Blood Cells into Peripheral Vein, Percutaneous Approach (ICD-10-PCS; 2016-08-09)
DX: S72.402A Unspecified fracture of lower end of left femur, initial encounter for closed fracture (principal); D69.6 Thrombocytopenia, unspecified; F05 Delirium due to known physiological condition; J44.9 Chronic obstructive pulmonary disease, unspecified; E11.9 Type 2 diabetes mellitus without complications; Z79.4 Long term (current) use of insulin; Z79.84 Long term (current) use of oral hypoglycemic drugs; F17.200 Nicotine dependence, unspecified, uncomplicated; D62 Acute posthemorrhagic anemia; I10 Essential (primary) hypertension; E78.5 Hyperlipidemia, unspecified; E03.9 Hypothyroidism, unspecified; W10.8XXA Fall (on) (from) other stairs and steps, initial encounter; Y92.019 Unspecified place in single-family (private) house as the place of occurrence of the external cause; Z91.81 History of falling; F32.9 Major depressive disorder, single episode, unspecified
CPT/HCPCS: 2NASP; 36415; 73502-LT; 73552; 73560-LT; 80307; 81001; 82436; 86920; 87086; 93005; 93010; 97110-GO; 97162-GP; 97530-GO; C1713; C9399; J0131; J0690; J1650; J1815; J3101; J7040; J7042; P9016